=== PATIENT | female | born 1950 | race Caucasian/White ===

== ENCOUNTER 2024-01-12 19:35 | Inpatient (IN) | payer MEDICARE, OTHER ==
--- NOTE | 2024-01-12 20:43 | ED ---
General Adult HPI - General Source: patient, EMS, RN notes reviewed Mode of arrival: EMS <Rashida Greene - Last Filed: 01/13/24 00:02> <Allison Angel - Last Filed: 01/21/24 11:42> - General Chief complaint: Fever Stated complaint: Weakness Time Seen by Provider: 01/12/24 19:40 - History of Present Illness Initial comments: 73-year-old female with past medical history of ovarian cancer and A-fib presents to the emergency department for evaluation of full body pain and weakness. She states that she received chemotherapy at the end of last week. She notes that on Sunday she developed severe full body pains. She called her oncologist, Dr. Vincent and was prescribed gabapentin and oxycodon she states that she was taking these and it helped. She reports that the gabapentin made her feel confused so she has not been taking it. She reports chills today. She is on Eliquis for her A-fib. Denies chest pain, shortness of breath, cough, congestion, nausea, vomiting, diarrhea. Family states they did an at home UTI test which was positive. (Rashida Greene) - Related Data Home Medications Medication Instructions Recorded Confirmed Biotin 5 mg PO DAILY 01/12/24 01/12/24 Cholecalciferol (Vitamin D3) 50 mcg PO DAILY 01/12/24 01/12/24 [Vitamin D3 (50 Mcg = 2000 Iu)] Metoprolol Tartrate [Lopressor] 50 mg PO BID 01/12/24 01/13/24 Pantoprazole Sodium [Protonix] 40 mg PO DAILY 01/12/24 01/12/24 Prochlorperazine [Compazine] 10 mg PO Q6H PRN 01/12/24 01/12/24 Pyridoxine HCl (Vitamin B6) 100 mg PO DAILY 01/12/24 01/12/24 [Vitamin B-6] amLODIPine [Norvasc] 10 mg PO DAILY PRN 01/12/24 01/12/24 ondansetron HCL [Zofran] 8 mg PO Q8HR PRN 01/12/24 01/12/24 oxyCODONE HCL [OxyIR] 5 mg PO Q6H PRN 01/12/24 01/12/24 Previous Rx's Medication Instructions Recorded Acetaminophen Tab [Tylenol] 650 mg PO Q6HR PRN tab 01/16/24 Apixaban [Eliquis] 5 mg PO BID #60 tab 01/16/24 Magnesium Oxide [Mag-Ox] 400 mg PO TID 7 Days #21 tablet 01/16/24 cefUROXime axetiL [Ceftin] 500 mg PO BID 7 Days #14 tab 01/16/24 Allergies Allergy/AdvReac Type Severity Reaction Status Date / Time No Known Allergies Allergy Verified 01/12/24 20:09 Review of Systems ROS Other: All systems not noted in ROS Statement are negative. <Rashida Greene - Last Filed: 01/13/24 00:02> ROS Other: All systems not noted in ROS Statement are negative. <Allison Angel - Last Filed: 01/21/24 11:42> ROS Statement: Those systems with pertinent positive or pertinent negative responses have been documented in the HPI. General Exam Limitations: no limitations General appearance: alert, in no apparent distress Head exam: Present: atraumatic, normocephalic, normal inspection Eye exam: Present: normal appearance, PERRL, EOMI. Absent: scleral icterus, conjunctival injection, periorbital swelling ENT exam: Present: normal exam, mucous membranes moist Neck exam: Present: normal inspection. Absent: tenderness, meningismus, lymphadenopathy Respiratory exam: Present: normal lung sounds bilaterally. Absent: respiratory distress, wheezes, rales, rhonchi, stridor Cardiovascular Exam: Present: normal rhythm, tachycardia GI/Abdominal exam: Present: soft, normal bowel sounds. Absent: distended, tenderness, guarding, rebound, rigid Extremities exam: Present: normal inspection, full ROM, normal capillary refill. Absent: tenderness, pedal edema, joint swelling, calf tenderness Back exam: Present: normal inspection Neurological exam: Present: alert, oriented X3 Psychiatric exam: Present: normal affect, normal mood Skin exam: Present: warm, dry, intact, normal color. Absent: rash <Rashida Greene - Last Filed: 01/13/24 00:02> Course Vital Signs 01/12/24 01/12/24 01/12/24 19:40 22:37 23:00 Temperature 100.1 F H Pulse Rate 144 H 128 H 83 Respiratory 18 18 16 Rate Blood Pressure 107/79 93/66 95/64 O2 Sat by Pulse 96 95 96 Oximetry 03/30/24 03/31/24 03/31/24 23:32 00:09 00:46 Temperature Pulse Rate 84 77 75 Respiratory 16 16 16 Rate Blood Pressure 93/60 94/84 93/55 O2 Sat by Pulse 97 96 94 L Oximetry Medical Decision Making - Lab Data Result diagrams: 01/12/24 20:52 01/12/24 20:52 <Rashida Greene - Last Filed: 01/13/24 00:02> - Lab Data Result diagrams: 01/15/24 10:03 01/16/24 08:49 <JeanneAllison Irene - Last Filed: 01/21/24 11:42> - Medical Decision Making Was pt. sent in by a medical professional or institution (JULISSA White, MACHINE WASHER, urgent care, hospital, or long term...) When possible be specific @ -[No] Did you speak to anyone other than the patient for history (EMS, parent, family, police, friend...)? What history was obtained from this source @ -[Patient's daughter and son-in-law in the room provided the history for this patient] Did you review nursing and triage notes (agree or disagree)? Why? @ -[I reviewed and agree with nursing and triage notes] Were old charts reviewed (outside hosp., previous admission, EMS record, old EKG, old radiological studies, urgent care reports/EKG's, long term records)? Report findings @ -[No old charts were reviewed] Differential Diagnosis (chest pain, altered mental status, abdominal pain women, abdominal pain men, vaginal bleeding, weakness, fever, dyspnea, syncope, headache, dizziness, GI bleed, back pain, seizure, CVA, palpatations, mental health, musculoskeletal)? @ -[Differential Weakness: Hypoglycemia, shock, sepsis, hyponatremia, anemia, infection, IA, ETOH, adverse medicine reaction, overdose, stroke, this is not meant to be an all-inclusive list. ] EKG interpreted by me (3pts min.). @ -EKG at 1946 shows sinus tachycardia rate 118, IA 128, QRS 79, QTQTc [id number] X-rays interpreted by me (1pt min.). @ -[Chest x-ray shows no acute process] CT interpreted by me (1pt min.). @ -[None done] U/S interpreted by me (1pt. min.). @ -[None done] What testing was considered but not performed or refused? (CT, X-rays, U/S, labs)? Why? @ -[None] What meds were considered but not given or refused? Why? @ -[None] Did you discuss the management of the patient with other professionals (professionals i.e. Dr., PA, MACHINE WASHER, lab, RT, psych nurse, pediatric social worker, sports cartoonist, teacher, v/stol landing signal officer, case hardener)? Give summary @ -[No] Was smoking cessation discussed for >3mins.? @ -[No] Was critical care preformed (if so, how long)? @ -[No] Were there social determinants of health that impacted care today? How? (Homelessness, low income, unemployed, alcoholism, drug addiction, transportation, low edu. Level, literacy, decrease access to med. care, [facility], rehab)? @ -[No] Was there de-escalation of care discussed even if they declined (Discuss DNR or withdrawal of care, Hospice)? DNR status @ -[No] What co-morbidities impacted this encounter? (DM, HTN, Smoking, COPD, CAD, Cancer, CVA, ARF, Chemo, Hep., AIDS, mental health diagnosis, sleep apnea, morbid obesity)? @ -[Ovarian cancer] Was patient admitted / discharged? Hospital course, mention meds given and route, prescriptions, significant lab abnormalities, going to OR and other pertinent info. @ -[admitted. Patient presented to the emergency department for evaluation of generalized weakness, full body pain. Patient has a history of ovarian cancer and a chemotherapy patient. Patient states her last chemo was around 9 days ago. She follows with Dr. Vincent at [facility] in [place]. On presentation, patient is found to be febrile and tachycardic, source of infection not identified. Laboratory studies obtained which show leukopenia with a WBC of 900, Anemia with hemoglobin 9.9 which is baseline for the patient; normal coagulation studies; hyponatremia with sodium 129, BUN 37, creatinine 1.55, magnesium 1.1 this will be replaced. AST and ALT mildly elevated with alk phos 510. Negative troponin; COVID, influenza, RSV negative. UA pending at time of admission chest x-ray shows no acute process. Patient did receive 2 g of cefepime and vancomycin per pharmacy after WBC resulted with concern of neutropenic fever. Order placed for cefepime every 8 hours. She also received 2 L of normal saline and was started on 130 cc/h maintenance. Tachycardia improved. Patient will be admitted for neutropenic fever with consult to oncology. Discussed this with patient, she is understanding and agreeable with this plan.] Undiagnosed new problem with uncertain prognosis? @ -[No] Drug Therapy requiring intensive monitoring for toxicity (Heparin, Nitro, Insulin, Cardizem)? @ -[No] Were any procedures done? @ -[No] Diagnosis/symptom? @ -[neutropenic fever, sepsis] Acute, or Chronic, or Acute on Chronic? @ -acute Uncomplicated (without systemic symptoms) or Complicated (systemic symptoms)? @ -complicated Side effects of treatment? @ -[No] Exacerbation, Progression, or Severe Exacerbation? @ -[No] Poses a threat to life or bodily function? How? (Chest pain, USA, IA, pneumonia, PE, COPD, DKA, ARF, appy, cholecystitis, CVA, Diverticulitis, Homicidal, Suicidal, threat to staff... and all critical care pts) @ -[sepsis, neutropenic fever] (Rashida Greene) - Lab Data Lab Results 01/12/24 01/12/24 01/12/24 Range/Units 20:52 20:52 20:52 WBC 0.9 L* (3.8-10.6) k/uL RBC 3.37 L (3.80-5.40) m/uL Hgb 9.9 L (11.4-16.0) gm/dL Hct 30.3 L (34.0-46.0) % MCV 89.7 (80.0-100.0) fL MCH 29.4 (25.0-35.0) pg MCHC 32.8 (31.0-37.0) g/dL RDW 16.0 H (11.5-15.5) % Plt Count 87 L (150-450) k/uL MPV 9.0 Differential Comment Manual Slide Review Performed PT 11.0 (10.0-12.5) sec INR 1.0 (<1.2) APTT 29.0 (22.0-30.0) sec Sodium 129 L (137-145) mmol/L Potassium 4.1 (3.5-5.1) mmol/L Chloride 102 (98-107) mmol/L Carbon Dioxide 19 L (22-30) mmol/L Anion Gap 8 mmol/L BUN 37 H (7-17) mg/dL Creatinine 1.55 H (0.52-1.04) mg/dL Est GFR (CKD-EPI)AfAm 38 (>60 ml/min/1.73 sqM) Est GFR (CKD-EPI)NonAf 33 (>60 ml/min/1.73 sqM) Glucose 106 H (74-99) mg/dL Plasma Lactic Acid Alvarado (0.7-2.0) mmol/L Calcium 8.9 (8.4-10.2) mg/dL Magnesium 1.1 L (1.6-2.3) mg/dL Total Bilirubin 1.5 H (0.2-1.3) mg/dL AST 84 H (14-36) U/L ALT 81 H (4-34) U/L Alkaline Phosphatase 510 H (38-126) U/L Troponin I (0.000-0.034) ng/mL Total Protein 6.3 (6.3-8.2) g/dL Albumin 3.2 L (3.5-5.0) g/dL Influenza Type A (PCR) (Not Detectd) Influenza Type B (PCR) (Not Detectd) RSV (PCR) (Not Detectd) SARS-CoV-2 (PCR) (Not Detectd) 01/12/24 01/12/24 01/12/24 Range/Units 20:52 20:52 21:00 WBC (3.8-10.6) k/uL RBC (3.80-5.40) m/uL Hgb (11.4-16.0) gm/dL Hct (34.0-46.0) % MCV (80.0-100.0) fL MCH (25.0-35.0) pg MCHC (31.0-37.0) g/dL RDW (11.5-15.5) % Plt Count (150-450) k/uL MPV Differential Comment Manual Slide Review PT (10.0-12.5) sec INR (<1.2) APTT (22.0-30.0) sec Sodium (137-145) mmol/L Potassium (3.5-5.1) mmol/L Chloride (98-107) mmol/L Carbon Dioxide (22-30) mmol/L Anion Gap mmol/L BUN (7-17) mg/dL Creatinine (0.52-1.04) mg/dL Est GFR (CKD-EPI)AfAm (>60 ml/min/1.73 sqM) Est GFR (CKD-EPI)NonAf (>60 ml/min/1.73 sqM) Glucose (74-99) mg/dL Plasma Lactic Acid Alvarado 1.2 (0.7-2.0) mmol/L Calcium (8.4-10.2) mg/dL Magnesium (1.6-2.3) mg/dL Total Bilirubin (0.2-1.3) mg/dL AST (14-36) U/L ALT (4-34) U/L Alkaline Phosphatase (38-126) U/L Troponin I <0.012 (0.000-0.034) ng/mL Total Protein (6.3-8.2) g/dL Albumin (3.5-5.0) g/dL Influenza Type A (PCR) Not Detected (Not Detectd) Influenza Type B (PCR) Not Detected (Not Detectd) RSV (PCR) Not Detected (Not Detectd) SARS-CoV-2 (PCR) Not Detected (Not Detectd) Disposition Is patient prescribed a controlled substance at d/c from ED?: No <Rashida Greene - Last Filed: 01/13/24 00:02> <Allison Angel - Last Filed: 01/21/24 11:42> Clinical Impression: Neutropenic fever, Sepsis Disposition: ADMITTED IP TO THIS HOSP Condition: Fair
[2024-01-12] MEDS: SODIUM CHLORIDE 0.9% 1,000 ML IV STA ×2 (20:52→23:03)
[2024-01-12] MEDS: ACETAMINOPHEN TAB 325 MG TAB PO STA (20:57)
[2024-01-12 21:03] LABS: HCT 30.3 % (34.0-46.0); HGB 9.9 gm/dL (11.4-16.0); MCH 29.4 pg (25.0-35.0); MCHC 32.8 g/dL (31.0-37.0); MCV 89.7 fL (80.0-100.0); RBC 3.37 m/uL (3.80-5.40)
[2024-01-12 21:14] LABS: ALT 81 U/L (4-34); AST 84 U/L (14-36); African American GFR (CKD) 38 (>60 ml/min/1.73 sqM); Albumin 3.2 g/dL (3.5-5.0); Alkaline Phosphatase 510 U/L (38-126); Anion Gap 8 mmol/L; Blood Urea Nitrogen 37 mg/dL (7-17); Calcium 8.9 mg/dL (8.4-10.2); Carbon Dioxide 19 mmol/L (22-30); Chloride 102 mmol/L (98-107); Glucose 106 mg/dL (74-99); Magnesium 1.1 mg/dL (1.6-2.3); Non-African American GFR(CKD) 33 (>60 ml/min/1.73 sqM); Potassium 4.1 mmol/L (3.5-5.1); Sodium 129 mmol/L (137-145); Total Bilirubin 1.5 mg/dL (0.2-1.3); Total Protein 6.3 g/dL (6.3-8.2)
[2024-01-12 21:31] LABS: WBC 0.9 k/uL (3.8-10.6)
[2024-01-12] MEDS ORDERED: VANCOMYCIN IV PER PHARMACY 1 EACH MISC MISCELLANE PRN (21:38)
[2024-01-12] MEDS ORDERED: Magnesium Replacement Protocol 1 EACH MISC MISCELLANE PRN (21:46)
[2024-01-12] MEDS: CEFEPIME 2 GM in SODIUM CHLORIDE 0.9% 100 ML IVPB STA (22:20)
--- NOTE | 2024-01-12 22:30 | XR ---
EXAMINATION TYPE: XR chest 2V DATE OF EXAM: 01/12/2024 COMPARISON: None INDICATION: Weakness history of ovarian cancer TECHNIQUE: Frontal and lateral views of the chest are obtained. FINDINGS: The heart size is normal. The pulmonary vasculature is normal. The lungs are clear. IMPRESSION: 1. No acute pulmonary process.
[2024-01-12] MEDS: SODIUM CHLORIDE 0.9% 1,000 ML IV ONE (22:33)
[2024-01-12] MEDS: MAGNESIUM SULFATE-D5W PMX 1 GM in DEXTROSE/WATER 1 100ML.BAG IVPB SCH (22:34)
[2024-01-12] MEDS: VANCOMYCIN 1,250 MG in SODIUM CHLORIDE 0.9% 250 ML IVPB ONE (23:00)
[2024-01-12] MEDS: APIXABAN 5 MG TAB PO STA (23:05)
[2024-01-12 23:24] LABS: Platelet Count 87 k/uL (150-450)
[2024-01-13] MEDS ORDERED: ONDANSETRON 4 MG/2 ML VIAL IVP PRN
[2024-01-13] MEDS ORDERED: HYDROmorphone 0.5 MG/0.5 ML SYRINGE IVP PRN
[2024-01-13] MEDS ORDERED: NALOXONE 0.4 MG/ML 1 ML VIAL IV PRN
[2024-01-13 01:55] LABS: Appearance,Urine Clear (Clear); Bilirubin,Urine Negative (Negative); Blood,Urine Negative (Negative); Color,Urine Colorless; Glucose,Urine (UA) Negative (Negative); Ketones,Urine Negative (Negative); Leukocyte Esterase,Urine Negative (Negative); Nitrite,Urine Negative (Negative); Protein,Urine Negative (Negative); Specific Gravity,Urine 1.004 (1.001-1.035); Urobilinogen,Urine <2.0 mg/dL (<2.0)
[2024-01-13] MEDS: CEFEPIME 2 GM in SODIUM CHLORIDE 0.9% 100 ML IVPB SCH ×2 (06:13→18:31)
[2024-01-13] MEDS ORDERED: PROCHLORPERAZINE 10 MG TAB PO PRN (06:44)
[2024-01-13] MEDS ORDERED: ONDANSETRON 4 MG TAB PO PRN (06:44)
[2024-01-13] MEDS ORDERED: amLODIPine 10 MG TAB PO PRN (06:44)
[2024-01-13] MEDS ORDERED: NON FORMULARY DRUG (Biotin [Biotin] 5 MG Capsule) PO SCH (09:00)
[2024-01-13] MEDS: METOPROLOL TARTRATE 25 MG TAB PO SCH (09:49)
[2024-01-13] MEDS: CHOLECALCIFEROL 25 MCG (1000 IU) TABLET PO SCH (09:49)
[2024-01-13] MEDS: APIXABAN 5 MG TAB PO SCH (09:49)
[2024-01-13] MEDS: PANTOPRAZOLE 40 MG TABLET PO SCH (09:49)
--- NOTE | 2024-01-13 10:21 | P.CONS ---
History of Present Illness - Reason for Consult Consult date: 01/13/24 neutropenic fever Requesting physician: Nicole Bailey - Chief Complaint Body pain and weakness and chills - History of Present Illness Ms. Pena is a very pleasant 73 yo female with multiple comorbidities including ovarian cancer on chemo with Dr. Vincent who is here for diffuse body pain (stabbing pain, mostly in hands/arms and feet/legs), chills, and weakness. She received her last chemo, C1 of carbo/taxol, she states was a week ago. Per pt she did not recieve G-CSF. Sunday she developed body pain and was started on oxycodone and neurontin, which seemed to help however did started having confusion 1-2 days [employer]GER, about 3 days after starting neurontin which she attributed to neurontin and stopped this. Subsequently developed chills/rigors which prompted her ED visit. Work up iwth WBC 0.9, Hgb 9.9, plt 87, Na 129, Cr 1.5, temp 100.1, BP 90's/50's. CXR was negative, UA negative, and COVID/flu/RSV negative. She was started on broad spectrum antibiotics and admitted for further management. We were consulted for febrile neutropenia. 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 States she did not recieve neulasta this time, however she has received this in the past with other regimens. No diarrhea, SOB, sore throat, or other complaints. Slight headache the night prior to admission. Past Medical History Past Medical History: Atrial Fibrillation, Cancer Additional Past Medical History / Comment(s): Billiary stents, Ovarian cancer current chemo History of Any Multi-Drug Resistant Organisms: None Reported Past Anesthesia/Blood Transfusion Reactions: No Reported Reaction Smoking Status: Never smoker Past Alcohol Use History: None Reported Past Drug Use History: None Reported Medications and Allergies Home Medications Medication Instructions Recorded Confirmed Type Apixaban [Eliquis] 2.5 mg PO BID 01/12/24 01/12/24 History Biotin 5 mg PO DAILY 01/12/24 01/12/24 History Cholecalciferol (Vitamin D3) 50 mcg PO DAILY 01/12/24 01/12/24 History [Vitamin D3 (50 Mcg = 2000 Iu)] Metoprolol Tartrate [Lopressor] 50 mg PO BID 01/12/24 01/13/24 History Pantoprazole Sodium [Protonix] 40 mg PO DAILY 01/12/24 01/12/24 History Prochlorperazine [Compazine] 10 mg PO Q6H PRN 01/12/24 01/12/24 History Pyridoxine HCl (Vitamin B6) 100 mg PO DAILY 01/12/24 01/12/24 History [Vitamin B-6] amLODIPine [Norvasc] 10 mg PO DAILY PRN 01/12/24 01/12/24 History ondansetron HCL [Zofran] 8 mg PO Q8HR PRN 01/12/24 01/12/24 History oxyCODONE HCL [OxyIR] 5 mg PO Q6H PRN 01/12/24 01/12/24 History Allergies Allergy/AdvReac Type Severity Reaction Status Date / Time No Known Allergies Allergy Verified 01/12/24 20:09 Physical Exam Vitals: Vital Signs Temp Pulse Pulse Resp BP BP Pulse Ox 01/13/24 02:00 108 H 18 01/13/24 01:40 97.4 F L 108 H 18 97/63 98 01/13/24 00:46 75 16 93/55 94 L 01/13/24 00:09 77 16 94/84 96 01/12/24 23:32 84 16 93/60 97 01/12/24 23:00 83 16 95/64 96 01/12/24 22:37 128 H 18 93/66 95 01/12/24 19:40 100.1 F H 144 H 18 107/79 96 Intake and Output 01/12/24 01/12/24 01/13/24 14:59 22:59 06:59 Output Total 900 Balance -900 Output: Urine 900 Other: Voiding Method Bedside Commode Weight 64.41 kg 64.41 kg Pt appears to be in no acute distress. Alert and oriented x 3. Abdomen soft and nontender. No respiratory distress. Heart with regular rate. Conjunctival pallor, no scleral icterus. Results CBC & Chem 7: 01/12/24 20:52 01/12/24 20:52 Labs: Abnormal Lab Results - Last 24 Hours (Table) 01/12/24 01/12/24 Range/Units 20:52 20:52 WBC 0.9 L* (3.8-10.6) k/uL RBC 3.37 L (3.80-5.40) m/uL Hgb 9.9 L (11.4-16.0) gm/dL Hct 30.3 L (34.0-46.0) % RDW 16.0 H (11.5-15.5) % Plt Count 87 L (150-450) k/uL Sodium 129 L (137-145) mmol/L Carbon Dioxide 19 L (22-30) mmol/L BUN 37 H (7-17) mg/dL Creatinine 1.55 H (0.52-1.04) mg/dL Glucose 106 H (74-99) mg/dL Magnesium 1.1 L (1.6-2.3) mg/dL Total Bilirubin 1.5 H (0.2-1.3) mg/dL AST 84 H (14-36) U/L ALT 81 H (4-34) U/L Alkaline Phosphatase 510 H (38-126) U/L Albumin 3.2 L (3.5-5.0) g/dL Chest x-ray: report reviewed Assessment and Plan Assessment: 1. Neutropenic fevere 2. Severe sepsis 3. Ovarian cancer 4. Atrial fibrillation 5. Hyponatremia 6. FAWN 7. Pancytopenia due to chemotherapy Plan: Ms. Pena is a very pleasant 73 yo female with history of ovarian cancer, on chemotherapy, last given [address] Vincent who is here for weakness, chills and body pain. WOrk up with febrile neutropenia, WBC 0.9, and signs of dehydration, Cr 1.5, Na 129. CXR, UA, COVID/flu/RSV negative. - Pancytopenia due to chemotherapy, monitor CBC and transfuse for Hgb <7 and plt <15 - Agree with vanco/cefepime for febrile neutropenia, await blood cultures - States she did not receive neulasta. Will start G-CSF daily until her ANC improves - Hydration - Hold eliqius if her plt <50, currently plt 87 - Defer to primary team regarding metoprolol; states she takes 50mg twice a day at home, and concerned about holding this, however i explained that this sometimes needs to be held if her BP is too low, even at risk of reverting into a. fib. - Hold chemotherapy until pt improves - Obtain records from Dr. Vincent's office Discussed with pt and she is agreeable. All questions answered.
[2024-01-13] MEDS: PYRIDOXINE 50 MG TAB PO SCH (13:02)
[2024-01-13] MEDS: METOPROLOL TARTRATE 25 MG TAB PO STA (13:03)
--- NOTE | 2024-01-13 13:18 | P.HPIM ---
History of Present Illness H&P Date: 01/13/24 History of present illness; patient is 73-year-old lady with past medical history significant for ovarian cancer on chemotherapy, atrial fibrillation on Eliquis brought to the ER for generalized weakness and bodyaches. Patient stated that she was all right couple of days back when she started noticing that she was getting body aches. There was no complaint of fever but patient was complaining of chills. There was no complaint of cough or shortness of breath. There is no complaint of orthopnea or PND. Patient did receive chemotherapy last week. Throughout the week patient symptoms persisted and she decided to come to the ER. Initial lab work done in the ER showed WBC 0.9, hemoglobin 9.9, platelet count 87, sodium 129, potassium 4.1, BUN 37, creatinine 1.55 magnesium 1.1, total bilirubin 1.5, AST 84, ALT 81 UA negative for infection Influenza A not detected Influenza B not detected RSV not detected COVID-19 not detected EKG done in the ER showed heart rate of 118, PA interval 128, QRS 79, no ST segment elevation or depression seen, no T-wave inversions seen. Chest x-ray done in the ER showed no acute pulmonary process Patient admitted to internal medicine service REVIEW OF SYSTEMS: CONSTITUTIONAL: As mentioned above HEENT: No recent visual problems or hearing problems. Denied any sore throat. CARDIOVASCULAR: No chest pain, orthopnea, PND, no palpitations, no syncope. PULMONARY: As mentioned above GASTROINTESTINAL: No diarrhea, no nausea, no vomiting, no abdominal pain. NEUROLOGICAL: No headaches, no weakness, no numbness. HEMATOLOGICAL: Denies any bleeding or petechiae. GENITOURINARY: Denies any burning micturition, frequency, or urgency. MUSCULOSKELETAL/RHEUMATOLOGICAL: Denies any joint pain, swelling, or any muscle pain. ENDOCRINE: Denies any polyuria or polydipsia. The rest of the 14-point review of systems is negative. PHYSICAL EXAMINATION: GENERAL: The patient is alert and oriented x3, not in any acute distress. Well developed, well nourished. HEENT: Pupils are round and equally reacting to light. EOMI. positive for conjunctival pallor. Normocephalic, atraumatic. No pharyngeal erythema. No thyromegaly. CARDIOVASCULAR: S1 and S2 present. No murmurs, rubs, or gallops. PULMONARY: Chest is clear to auscultation, no wheezing or crackles. ABDOMEN: Soft, nontender, nondistended, normoactive bowel sounds. No palpable organomegaly. MUSCULOSKELETAL: No joint swelling or deformity. EXTREMITIES: No cyanosis, clubbing, or pedal edema. NEUROLOGICAL: Gross neurological examination did not reveal any focal deficits. SKIN: No rashes. Assessment and plan Neutropenic fevers Hyponatremia Pancytopenia Acute kidney injury Hypomagnesemia Elevated LFTs History of ovarian cancer Chronic atrial fibrillation Monitor vital signs Monitor CBC Monitor CMP Continue telemetry monitoring Follow-up on blood cultures Continue IV fluids Continue broad-spectrum antibiotics in the form of IV cefepime vancomycin Resume home meds Continue antiemetics Hematology consulted ID consulted Labs and medication were reviewed.. Continue same treatment. Continue with symptomatic treatment. Resume home medication. Monitor labs and vitals. DVT and GI prophylaxis. Further recommendations as per clinical course of the patient Dictation was produced using [employer], [employer] dictation software. please excuse any grammatical, word or spelling errors. Past Medical History Past Medical History: Atrial Fibrillation, Cancer Additional Past Medical History / Comment(s): Billiary stents, Ovarian cancer current chemo History of Any Multi-Drug Resistant Organisms: None Reported Past Anesthesia/Blood Transfusion Reactions: No Reported Reaction Smoking Status: Never smoker Past Alcohol Use History: None Reported Past Drug Use History: None Reported Medications and Allergies Home Medications Medication Instructions Recorded Confirmed Type Apixaban [Eliquis] 2.5 mg PO BID 01/12/24 01/12/24 History Biotin 5 mg PO DAILY 01/12/24 01/12/24 History Cholecalciferol (Vitamin D3) 50 mcg PO DAILY 01/12/24 01/12/24 History [Vitamin D3 (50 Mcg = 2000 Iu)] Metoprolol Tartrate [Lopressor] 50 mg PO BID 01/12/24 01/13/24 History Pantoprazole Sodium [Protonix] 40 mg PO DAILY 01/12/24 01/12/24 History Prochlorperazine [Compazine] 10 mg PO Q6H PRN 01/12/24 01/12/24 History Pyridoxine HCl (Vitamin B6) 100 mg PO DAILY 01/12/24 01/12/24 History [Vitamin B-6] amLODIPine [Norvasc] 10 mg PO DAILY PRN 01/12/24 01/12/24 History ondansetron HCL [Zofran] 8 mg PO Q8HR PRN 01/12/24 01/12/24 History oxyCODONE HCL [OxyIR] 5 mg PO Q6H PRN 01/12/24 01/12/24 History Allergies Allergy/AdvReac Type Severity Reaction Status Date / Time No Known Allergies Allergy Verified 01/12/24 20:09 Physical Exam Vitals: Vital Signs Temp Pulse Pulse Resp BP BP Pulse Ox 01/13/24 09:38 97.9 F 89 18 119/70 98 01/13/24 04:00 114 H 18 100/69 99 01/13/24 02:00 108 H 18 01/13/24 01:40 97.4 F L 108 H 18 97/63 98 01/13/24 00:46 75 16 93/55 94 L 01/13/24 00:09 77 16 94/84 96 01/12/24 23:32 84 16 93/60 97 01/12/24 23:00 83 16 95/64 96 01/12/24 22:37 128 H 18 93/66 95 01/12/24 19:40 100.1 F H 144 H 18 107/79 96 Intake and Output 01/12/24 01/13/24 01/13/24 22:59 06:59 14:59 Intake Total 0 Output Total 1800 Balance -1800 0 Intake: Oral 0 Output: Urine 1800 Other: Voiding Method Bedside Commode # Voids 1 # Bowel Movements 1 1 Weight 64.41 kg 64.41 kg Results CBC & Chem 7: 01/12/24 20:52 01/12/24 20:52 Labs: Abnormal Lab Results - Last 24 Hours (Table) 01/12/24 01/12/24 Range/Units 20:52 20:52 WBC 0.9 L* (3.8-10.6) k/uL RBC 3.37 L (3.80-5.40) m/uL Hgb 9.9 L (11.4-16.0) gm/dL Hct 30.3 L (34.0-46.0) % RDW 16.0 H (11.5-15.5) % Plt Count 87 L (150-450) k/uL Sodium 129 L (137-145) mmol/L Carbon Dioxide 19 L (22-30) mmol/L BUN 37 H (7-17) mg/dL Creatinine 1.55 H (0.52-1.04) mg/dL Glucose 106 H (74-99) mg/dL Magnesium 1.1 L (1.6-2.3) mg/dL Total Bilirubin 1.5 H (0.2-1.3) mg/dL AST 84 H (14-36) U/L ALT 81 H (4-34) U/L Alkaline Phosphatase 510 H (38-126) U/L Albumin 3.2 L (3.5-5.0) g/dL Thrombosis Risk Factor Assmnt - Choose All That Apply Any of the Below Risk Factors Present?: No Other Risk Factors: Yes Each Risk Factor Represents 2 Points: Malignancy Each Risk Factor Represents 3 Points: Age 75 years or older Other congenital or acquired thrombophilia - If yes, enter type in comment: No Thrombosis Risk Factor Assessment Total Risk Factor Score: 5 Thrombosis Risk Factor Assessment Level: High Risk
[2024-01-13] MEDS: VANCOMYCIN 1,250 MG in SODIUM CHLORIDE 0.9% 250 ML IVPB ONE (14:41)
[2024-01-13] MEDS: FILGRASTIM-SNDZ 300 MCG/0.5 ML SYRINGE SQ SCH (18:31)
[2024-01-13] MEDS: METOPROLOL TARTRATE 50 MG TAB PO SCH (20:48)
[2024-01-13] MEDS: ACETAMINOPHEN TAB 325 MG TAB PO PRN (22:31)
--- NOTE | 2024-01-13 23:01 | P.CONS ---
History of Present Illness - Reason for Consult Consult date: 01/13/24 Fever Requesting physician: Mina Beaver - Chief Complaint Fever x 1 day - History of Present Illness Patient is a 73-year-old female past medical history significant for atrial fibrillation history of ovarian cancer on chemotherapy presenting to the hospital for evaluation of generalized weakness and bodyaches and this patient symptom has been going on since Sunday that is about 4 days before presentation to the hospital and her last chemo has been about a week ago patient apparently has been treated with gabapentin and oxycodone for her symptoms however the patient seem to have weakness and confusion associated with it started having rigors and chills for the patient present to the hospital patient on arrival to the ER did have a temperature of 100.1 F patient denies having any headache or URI symptoms no chest pain shortness of breath occasional cough no nausea no vomiting no abdominal pain no diarrhea no urinary symptoms patient did have a white count of 0.9 creatinine is 1.55 liver isms are mildly elevated urine has been negative influenza RSV COVID testing has been negative chest x-ray no acute cardiopulmonary process patient was started on cefepime and vancomycin infectious disease was consulted for further management of antibiotic therapy Review of Systems Positive point and negatives has been mentioned in the HPI, complete review of systems was performed and all other systems are negative Past Medical History Past Medical History: Atrial Fibrillation, Cancer Additional Past Medical History / Comment(s): Billiary stents, Ovarian cancer c urrent chemo History of Any Multi-Drug Resistant Organisms: None Reported Past Anesthesia/Blood Transfusion Reactions: No Reported Reaction Smoking Status: Never smoker Past Alcohol Use History: None Reported Past Drug Use History: None Reported Medications and Allergies Home Medications Medication Instructions Recorded Confirmed Type Biotin 5 mg PO DAILY 01/12/24 01/12/24 History Cholecalciferol (Vitamin D3) 50 mcg PO DAILY 01/12/24 01/12/24 History [Vitamin D3 (50 Mcg = 2000 Iu)] Metoprolol Tartrate [Lopressor] 50 mg PO BID 01/12/24 01/13/24 History Pantoprazole Sodium [Protonix] 40 mg PO DAILY 01/12/24 01/12/24 History Prochlorperazine [Compazine] 10 mg PO Q6H PRN 01/12/24 01/12/24 History Pyridoxine HCl (Vitamin B6) 100 mg PO DAILY 01/12/24 01/12/24 History [Vitamin B-6] amLODIPine [Norvasc] 10 mg PO DAILY PRN 01/12/24 01/12/24 History ondansetron HCL [Zofran] 8 mg PO Q8HR PRN 01/12/24 01/12/24 History oxyCODONE HCL [OxyIR] 5 mg PO Q6H PRN 01/12/24 01/12/24 History Acetaminophen Tab [Tylenol] 650 mg PO Q6HR PRN tab 01/16/24 Rx Apixaban [Eliquis] 5 mg PO BID #60 tab 01/16/24 Rx Magnesium Oxide [Mag-Ox] 400 mg PO TID 7 Days #21 tablet 01/16/24 Rx cefUROXime axetiL [Ceftin] 500 mg PO BID 7 Days #14 tab 01/16/24 Rx Allergies Allergy/AdvReac Type Severity Reaction Status Date / Time No Known Allergies Allergy Verified 01/12/24 20:09 Physical Exam Vitals: Vital Signs Temp Pulse Pulse Resp BP BP Pulse Ox 01/13/24 12:06 99.0 F 85 18 124/64 98 01/13/24 09:40 89 18 01/13/24 09:38 97.9 F 89 18 119/70 98 01/13/24 04:00 114 H 18 100/69 99 01/13/24 02:00 108 H 18 01/13/24 01:40 97.4 F L 108 H 18 97/63 98 01/13/24 00:46 75 16 93/55 94 L 01/13/24 00:09 77 16 94/84 96 01/12/24 23:32 84 16 93/60 97 01/12/24 23:00 83 16 95/64 96 01/12/24 22:37 128 H 18 93/66 95 01/12/24 19:40 100.1 F H 144 H 18 107/79 96 Intake and Output 01/12/24 01/13/24 01/13/24 22:59 06:59 14:59 Intake Total 0 Output Total 1800 Balance -1800 0 Intake: Oral 0 Output: Urine 1800 Other: Voiding Method Bedside Commode Bedside Commode # Voids 1 # Bowel Movements 1 1 Weight 64.41 kg 64.41 kg GENERAL DESCRIPTION: Elderly female lying in bed, no distress. No tachypnea or accessory muscle of respiration use. HEENT: Shows Pallor , no scleral icterus. Oral mucous membrane is dry. No pharyngeal erythema or thrush NECK: Trachea central, no thyromegaly. LUNGS: Unlabored breathing. Clear to auscultation anteriorly. No wheeze or crackle. HEART: S1, S2, regular rate and rhythm. No loud murmur ABDOMEN: Soft, no tenderness , guarding or rigidity, no organomegaly EXTREMITIES: No edema of feet. SKIN: No rash, no masses palpable. NEUROLOGICAL: The patient is awake, alert, oriented x3, mood and affect normal. Results CBC & Chem 7: 01/15/24 10:03 01/16/24 08:49 Labs: Abnormal Lab Results - Last 24 Hours (Table) 01/12/24 01/12/24 Range/Units 20:52 20:52 WBC 0.9 L* (3.8-10.6) k/uL RBC 3.37 L (3.80-5.40) m/uL Hgb 9.9 L (11.4-16.0) gm/dL Hct 30.3 L (34.0-46.0) % RDW 16.0 H (11.5-15.5) % Plt Count 87 L (150-450) k/uL Sodium 129 L (137-145) mmol/L Carbon Dioxide 19 L (22-30) mmol/L BUN 37 H (7-17) mg/dL Creatinine 1.55 H (0.52-1.04) mg/dL Glucose 106 H (74-99) mg/dL Magnesium 1.1 L (1.6-2.3) mg/dL Total Bilirubin 1.5 H (0.2-1.3) mg/dL AST 84 H (14-36) U/L ALT 81 H (4-34) U/L Alkaline Phosphatase 510 H (38-126) U/L Albumin 3.2 L (3.5-5.0) g/dL Assessment and Plan (1) Neutropenic fever Status: Acute Code(s): D70.9 - NEUTROPENIA, UNSPECIFIED; R50.81 - FEVER PRESENTING WITH CONDITIONS CLASSIFIED ELSEWHERE SNOMED Code(s): 121148344 Plan: 1patient presented to hospital with fever and this patient also noticed to be neutropenic from her chemotherapy symptom has been mostly fever generalized bodyaches and did have elevated liver enzymes questionable abdominal source 2-we will check inflammatory markers and ultrasound of the abdominal 3-patient to continue vancomycin and cefepime while waiting for the culture to finalize We will follow on clinical condition and cultures to further adjust medication if needed Thank you for this consultation we will follow the patient along with you Dictation was produced using [employer] dictation software. please excuse any grammatical, word or spelling errors. Time with Patient: Greater than 30
[2024-01-14 08:52] LABS: HCT 24.8 % (34.0-46.0); Hypochromasia Marked; MCHC 31.4 g/dL (31.0-37.0); Mean Platelet Volume 10.5; RDW 15.8 % (11.5-15.5); WBC 2.7 k/uL (3.8-10.6)
[2024-01-14 09:05] LABS: HGB 7.8 gm/dL (11.4-16.0); MCV 95.3 fL (80.0-100.0); Platelet Count 69 k/uL (150-450)
[2024-01-14 09:05] LABS: ALT 43 U/L (4-34); AST 32 U/L (14-36); African American GFR (CKD) 63 (>60 ml/min/1.73 sqM); Albumin 2.4 g/dL (3.5-5.0); Alkaline Phosphatase 341 U/L (38-126); Anion Gap 8 mmol/L; Blood Urea Nitrogen 20 mg/dL (7-17); Calcium 8.5 mg/dL (8.4-10.2); Carbon Dioxide 15 mmol/L (22-30); Chloride 110 mmol/L (98-107); Glucose 89 mg/dL (74-99); Magnesium 1.5 mg/dL (1.6-2.3); Non-African American GFR(CKD) 55 (>60 ml/min/1.73 sqM); Potassium 3.4 mmol/L (3.5-5.1); Sodium 133 mmol/L (137-145); Total Protein 5.2 g/dL (6.3-8.2)
[2024-01-14 09:10] LABS: Vancomycin,Random 13.9 ug/mL
[2024-01-14 09:43] LABS: Band Neutrophils % 9 %; Eosinophils # (M) 0.03 k/uL (0-0.7); Lymphocytes # (M) 0.57 k/uL (1.0-4.8); Monocytes # (M) 0.35 k/uL (0-1.0); Neutrophils % (M) 56 %; Nucleated Red Blood Cells 0 /100 WBC (0-0); Total Cells Counted 100
[2024-01-14] MEDS ORDERED: Magnesium Replacement Protocol 1 EACH MISC MISCELLANE PRN (09:56)
[2024-01-14] MEDS ORDERED: Potassium Replacement Protocol 1 EACH MISC MISCELLANE PRN (09:56)
[2024-01-14] MEDS: VANCOMYCIN 1,250 MG in SODIUM CHLORIDE 0.9% 250 ML IVPB SCH (11:14)
[2024-01-14] MEDS: MAGNESIUM SULFATE-D5W PMX 1 GM in DEXTROSE/WATER 1 100ML.BAG IVPB SCH (11:17)
[2024-01-14] MEDS: POTASSIUM CHLORIDE ER 20 MEQ TAB.ER PO SCH (11:18)
--- NOTE | 2024-01-14 14:44 | P.PN ---
Subjective Progress Note Date: 01/14/24 No acute events. Patient resting comfortably in bed. Patient had fever of 101.0 last night. Afebrile today. Denies abdominal pain, nausea vomiting diarrhea. WBC improving, WBC 2.7 today, ANC 1700. G-CSF started yesterday. Continues on IV antibiotics, blood cultures pending Objective - Vital Signs Vital signs: Vital Signs Temp 98 F 01/14/24 04:00 Pulse 82 01/14/24 04:00 Resp 18 01/14/24 04:00 BP 118/74 01/14/24 04:00 Pulse Ox 94 L 01/14/24 08:04 FiO2 Intake & Output 01/13/24 01/14/24 01/14/24 18:59 06:59 18:59 Intake Total 240 Output Total 800 Balance 240 -800 Intake: Oral 240 Output: Urine 800 Other: Voiding Method Bedside Commode Bedside Commode # Voids 2 1 # Bowel Movements 2 - Constitutional General appearance: Present: no acute distress - EENT Eyes: Present: anicteric sclerae, EOMI ENT: Present: hearing grossly normal - Respiratory Respiratory: bilateral: CTA - Cardiovascular Rhythm: regular Heart sounds: normal: S1, S2 - Gastrointestinal General gastrointestinal: Present: soft. Absent: tenderness - Integumentary Integumentary: Absent: cyanotic, jaundiced - Neurologic Neurologic Comment(s): No focal deficits - Musculoskeletal Musculoskeletal: Present: strength equal bilaterally - Psychiatric Psychiatric: Present: A&O x's 3 - Labs CBC & Chem 7: 01/14/24 07:08 01/14/24 06:57 Labs: Abnormal Lab Results - Last 24 Hours (Table) 01/14/24 01/14/24 Range/Units 06:57 07:08 WBC 2.7 L (3.8-10.6) k/uL RBC 2.60 L (3.80-5.40) m/uL Hgb 7.8 L D (11.4-16.0) gm/dL Hct 24.8 L (34.0-46.0) % RDW 15.8 H (11.5-15.5) % Plt Count 69 L (150-450) k/uL Lymphocytes # (Manual) 0.57 L (1.0-4.8) k/uL Sodium 133 L (137-145) mmol/L Potassium 3.4 L (3.5-5.1) mmol/L Chloride 110 H (98-107) mmol/L Carbon Dioxide 15 L (22-30) mmol/L BUN 20 H (7-17) mg/dL Magnesium 1.5 L (1.6-2.3) mg/dL ALT 43 H (4-34) U/L Alkaline Phosphatase 341 H (38-126) U/L Total Protein 5.2 L (6.3-8.2) g/dL Albumin 2.4 L (3.5-5.0) g/dL Assessment and Plan (1) Ovarian cancer Current Visit: Yes Status: Acute Code(s): C56.9 - MALIGNANT NEOPLASM OF UNSPECIFIED OVARY SNOMED Code(s): 996053734 (2) Pancytopenia due to chemotherapy Current Visit: Yes Status: Acute Code(s): D61.810 - ANTINEOPLASTIC CHEMOTHERAPY INDUCED PANCYTOPENIA SNOMED Code(s): 8176285 (3) Neutropenic fever Current Visit: Yes Status: Acute Code(s): D70.9 - NEUTROPENIA, UNSPECIFIED; R50.81 - FEVER PRESENTING WITH CONDITIONS CLASSIFIED ELSEWHERE SNOMED Code(s): 866947280 (4) Sepsis Current Visit: Yes Status: Acute Code(s): A41.9 - SEPSIS, UNSPECIFIED ORGANISM SNOMED Code(s): 90863714 Plan: Ms. Pena is a very pleasant 73 yo female with history of ovarian cancer, on chemotherapy, last given [address] Vincent who is here for weakness, chills and body pain. Work up with febrile neutropenia, WBC 0.9, and signs of dehydration, Cr 1.5, Na 129. CXR, UA, COVID/flu/RSV negative. - Pancytopenia due to chemotherapy, monitor CBC and transfuse for Hgb <7 and plt <50,000, if remains on anticoagulation - Agree with vanco/cefepime for febrile neutropenia, await blood cultures - States she did not receive neulasta with treatment. Will start G-CSF daily u ntil her ANC improves - Hold eliqius if her plt <50,0000, if able to from cardiology standpoint. Plts 69,000 today - Patient had last chemo on 01/03, would expect to start seeing improvement in counts over the next couple days - Hold chemotherapy until pt improves. Will f/u with Dr. Vincent upon discharge, defer when appropriate to restart treatment to her primary oncologist Dr attests: I have performed H&P and developed impression and plan of care for patient, discussed with dictator. I agree with dictated note, documented as a scribe
[2024-01-14 15:43] VITALS: BMI 24.3
[2024-01-14 15:46] LABS: Glucose,Whole Blood 103 mg/dL (70-110)
--- NOTE | 2024-01-14 17:11 | US ---
EXAMINATION TYPE: US abdomen complete DATE OF EXAM: 01/14/2024 COMPARISON: NONE CLINICAL INDICATION: Female, 73 years old with history of Fever elevated liver enzymes; Elevated LFT' s, pt has known CBD stent in place TECHNIQUE: Multiple sonographic images of the abdomen are obtained. FINDINGS: EXAM MEASUREMENTS: Liver Length: 14.6 cm Gallbladder Wall: 0.2 cm CBD: 1.2 cm Spleen: 9.0 cm Right Kidney: 10.8 x 4.6 x 5.3 cm Left Kidney: 9.6 x 4.5 x 4.3 cm Pancreas: wnl, tail obscured by overlying bowel gas Liver: Heterogeneous , no dilated ducts, masses or cystic structures. Gallbladder: Distended Evidence for sonographic De La Torre's sign: No CBD: Dilated with known stent in place Spleen: wnl Right Kidney: wnl Left Kidney: wnl Upper IVC: wnl Abd Aorta: wnl The liver is homogenous. The intrahepatic portion of the IVC and proximal abdominal aorta are within normal limits. There is no evidence of cholelithiasis. Common bile duct is unremarkable. The visu alized portions of the pancreas are homogenous. The spleen is unremarkable. Kidneys are symmetric a nd free of hydronephrosis. No renal lesions are seen. IMPRESSION: 1. No evidence for acute process. 2. Biliary stent appreciated. Consider further evaluation with MRI MRCP with IV contrast or CT.
--- NOTE | 2024-01-14 19:05 | P.PN ---
Subjective Progress Note Date: 01/14/24 Principal diagnosis: Reason for follow-up is febrile neutropenia Patient is a 73-year-old female past medical history significant for atrial fibrillation history of ovarian cancer on chemotherapy presenting to the hospital for evaluation of generalized weakness and bodyaches, patient did have a fever no white count initial workup negative. On today's evaluation that is 01/14/2024, the patient did spike another fever of 101 F last night however the patient is afebrile this morning, the patient is on room air and breathing comfortably, the Pt denies having any chest pain or cough, the patient denies having any abdominal pain no vomiting or any diarrhea patient white count is up to 2.7, creatinine is 1.01 cultures currently pending Objective - Vital Signs Vital signs: Vital Signs Temp 98 F 01/14/24 04:00 Pulse 82 01/14/24 04:00 Resp 18 01/14/24 04:00 BP 118/74 01/14/24 04:00 Pulse Ox 94 L 01/14/24 08:04 FiO2 Intake & Output 01/13/24 01/14/24 01/14/24 18:59 06:59 18:59 Intake Total 240 Output Total 800 Balance 240 -800 Intake: Oral 240 Output: Urine 800 Other: Voiding Method Bedside Commode Bedside Commode # Voids 2 1 # Bowel Movements 2 - Exam GENERAL DESCRIPTION: An elderly female up in the chair in no distress RESPIRATORY SYSTEM: Unlabored breathing , decreased breath sounds at bases HEART: S1 S2 regular rate and rhythm , ABDOMEN: Soft , no tenderness EXTREMITIES: No edema feet - Labs CBC & Chem 7: 01/14/24 07:08 01/14/24 06:57 Labs: Abnormal Lab Results - Last 24 Hours (Table) 01/14/24 01/14/24 Range/Units 06:57 07:08 WBC 2.7 L (3.8-10.6) k/uL RBC 2.60 L (3.80-5.40) m/uL Hgb 7.8 L D (11.4-16.0) gm/dL Hct 24.8 L (34.0-46.0) % RDW 15.8 H (11.5-15.5) % Plt Count 69 L (150-450) k/uL Lymphocytes # (Manual) 0.57 L (1.0-4.8) k/uL Sodium 133 L (137-145) mmol/L Potassium 3.4 L (3.5-5.1) mmol/L Chloride 110 H (98-107) mmol/L Carbon Dioxide 15 L (22-30) mmol/L BUN 20 H (7-17) mg/dL Magnesium 1.5 L (1.6-2.3) mg/dL ALT 43 H (4-34) U/L Alkaline Phosphatase 341 H (38-126) U/L Total Protein 5.2 L (6.3-8.2) g/dL Albumin 2.4 L (3.5-5.0) g/dL Microbiology - Last 24 Hours (Table) 01/12/24 22:15 Blood Culture - Preliminary Blood 01/12/24 22:00 Blood Culture - Preliminary Blood Assessment and Plan (1) Neutropenic fever Current Visit: Yes Status: Acute Code(s): D70.9 - NEUTROPENIA, UNSPECIFIED; R50.81 - FEVER PRESENTING WITH CONDITIONS CLASSIFIED ELSEWHERE SNOMED Code(s): 811631681 Plan: 1patient presented to hospital with fever and this patient also noticed to be neutropenic from her chemotherapy symptom has been mostly fever generalized bodyaches and did have elevated liver enzymes questionable abdominal source 2- inflammatory markers pending and ultrasound of the abdomin did not show any acute process biliary stent appreciated 3-patient to continue vancomycin and cefepime while waiting for the culture to finalize and monitor clinical course closely Dictation was produced using [employer] dictation software. please excuse any grammatical, word or spelling errors. Time with Patient: Less than 30
--- NOTE | 2024-01-15 08:08 | PN ---
PROGRESS NOTE DATE OF SERVICE: 01/14/2024 This 73-year-old woman was admitted with neutropenic fever and hyponatremia and pancytopenia and is being closely monitored. No chest pain. No palpitations. White count is improved at 2.7. PHYSICAL EXAMINATION: VITAL SIGNS: Pulse is 82, blood pressure 118/70, respirations 18. CHEST: Clear to auscultation. CARDIOVASCULAR: S1, S2. ABDOMEN: Soft. NERVOUS SYSTEM: No focal deficits. LABS: Cultures are negative. Otherwise, other labs are noted. ASSESSMENT: 1. Neutropenic fever for evaluation. 2. Hyponatremia. 3. Pancytopenia. 4. Acute kidney injury. 5. Hypomagnesemia. 6. Elevated LFTs. 7. History of ovarian cancer. 8. Multiple complex medical issues. RECOMMENDATIONS AND DISCUSSION: Recommend to continue current management, continue symptomatic treatment, and continue empiric antibiotics. Potassium, magnesium checking replacement, the patient is on cefepime. Otherwise, repeat labs. Further recommendations to follow. See orders for details. Closely follow with Infectious Disease. MMODL / IJN: [id number] /
[2024-01-15 11:32] LABS: African American GFR (CKD) 61 (>60 ml/min/1.73 sqM); Anion Gap 6 mmol/L; Blood Urea Nitrogen 18 mg/dL (7-17); Calcium 9.1 mg/dL (8.4-10.2); Carbon Dioxide 18 mmol/L (22-30); Chloride 111 mmol/L (98-107); Glucose 101 mg/dL (74-99); Magnesium 1.7 mg/dL (1.6-2.3); Non-African American GFR(CKD) 53 (>60 ml/min/1.73 sqM); Potassium 4.1 mmol/L (3.5-5.1); Sodium 135 mmol/L (137-145)
[2024-01-15 11:40] LABS: Anisocytosis Slight; HCT 25.7 % (34.0-46.0); HGB 8.2 gm/dL (11.4-16.0); Hypochromasia Slight; MCH 29.6 pg (25.0-35.0); MCHC 31.8 g/dL (31.0-37.0); MCV 93.1 fL (80.0-100.0); Mean Platelet Volume 9.9; Platelet Count 91 k/uL (150-450); RBC 2.76 m/uL (3.80-5.40); WBC 6.2 k/uL (3.8-10.6)
[2024-01-15 12:55] LABS: Band Neutrophils % 4 %; Eosinophils # (M) 0.06 k/uL (0-0.7); Lymphocytes # (M) 0.74 k/uL (1.0-4.8); Metamyelocytes # (M) 0.19 k/uL (0); Metamyelocytes % 3 %; Monocytes # (M) 0.74 k/uL (0-1.0); Neutrophils % (M) 70 %; Nucleated Red Blood Cells 0 /100 WBC (0-0); Total Cells Counted 200
[2024-01-15] MEDS ORDERED: Magnesium Replacement Protocol 1 EACH MISC MISCELLANE PRN (13:22)
[2024-01-15] MEDS: MAGNESIUM SULFATE-D5W PMX 1 GM in DEXTROSE/WATER 1 100ML.BAG IVPB ONE (15:18)
--- NOTE | 2024-01-15 16:36 | P.PN ---
Subjective Progress Note Date: 01/15/24 Principal diagnosis: Reason for follow-up is febrile neutropenia Patient is a 73-year-old female past medical history significant for atrial fibrillation history of ovarian cancer on chemotherapy presenting to the hospital for evaluation of generalized weakness and bodyaches, patient did have a fever no white count initial workup negative. On today's evaluation that is 01/15/2024, Patient is afebrile patient is currently on room air and denies having any shortness of breath, the patient denies any chest pain or cough, the patient denies any nausea vomiting did not have any abdominal pain and no diarrhea, feeling better. Patient white count is normalized to 6.2, creatinine 1.04 culture has been negative so far Objective - Vital Signs Vital signs: Vital Signs Temp 98.5 F 01/15/24 15:16 Pulse 93 01/15/24 15:16 Resp 16 01/15/24 15:16 BP 111/72 01/15/24 15:16 Pulse Ox 98 01/15/24 15:16 FiO2 Intake & Output 01/14/24 01/15/24 01/15/24 18:59 06:59 18:59 Intake Total 240 Balance 240 Weight 64.41 kg Intake: Oral 240 Other: Voiding Method Bedside Commode Bedside Commode Bedside Commode # Voids 1 - Exam GENERAL DESCRIPTION: An elderly female up in the chair in no distress RESPIRATORY SYSTEM: Unlabored breathing , decreased breath sounds at bases HEART: S1 S2 regular rate and rhythm , ABDOMEN: Soft , no tenderness EXTREMITIES: No edema feet - Labs CBC & Chem 7: 01/15/24 10:03 01/15/24 10:03 Labs: Abnormal Lab Results - Last 24 Hours (Table) 01/15/24 01/15/24 Range/Units 10:03 10:03 RBC 2.76 L (3.80-5.40) m/uL Hgb 8.2 L (11.4-16.0) gm/dL Hct 25.7 L (34.0-46.0) % RDW 16.0 H (11.5-15.5) % Plt Count 91 L (150-450) k/uL Lymphocytes # (Manual) 0.74 L (1.0-4.8) k/uL Metamyelocytes # (Man) 0.19 H (0) k/uL Sodium 135 L (137-145) mmol/L Chloride 111 H (98-107) mmol/L Carbon Dioxide 18 L (22-30) mmol/L BUN 18 H (7-17) mg/dL Glucose 101 H (74-99) mg/dL Microbiology - Last 24 Hours (Table) 01/12/24 22:15 Blood Culture - Preliminary Blood 01/12/24 22:00 Blood Culture - Preliminary Blood Assessment and Plan (1) Neutropenic fever Current Visit: Yes Status: Acute Code(s): D70.9 - NEUTROPENIA, UNSPECIFIED; R50.81 - FEVER PRESENTING WITH CONDITIONS CLASSIFIED ELSEWHERE SNOMED Code(s): 617196424 Plan: 1patient presented to hospital with fever and this patient also noticed to be neutropenic from her chemotherapy symptom has been mostly fever generalized bodyaches and did have elevated liver enzymes questionable abdominal source 2- inflammatory markers pending and ultrasound of the abdomin did not show any acute process biliary stent appreciated 3-patient did have resolution of her fever and patient white count normalized we will discontinue vancomycin with a culture negative on cefepime transition to short course of Ceftin on discharge Dictation was produced using [employer] dictation software. please excuse any grammatical, word or spelling errors. Time with Patient: Less than 30
[2024-01-15 22:25] VITALS: RESP 18
--- NOTE | 2024-01-16 05:12 | P.PN ---
Subjective Progress Note Date: 01/15/24 This is a pleasant 73-year-old female who was recently admitted with neutropenic fever and hyponatremia with pancytopenia being closely monitored. Patient with history of ovarian cancer currently undergoing infectious disease and oncology following and patient is maintained on antibiotics and cultures thus far been negative. Patient had a follow-up abdominal ultrasound with no acute findings noted. White count has improved and hemoglobin remained stable at 8.8 with no active bleeding noted. Patient is tolerating more of her diet and denies nausea or vomiting. Patient denies any diarrhea at this time and reports is feeling slightly improved. Patient with generalized weakness was evaluated by physical therapy doing well. Plan is for returning home once discharged. Review of systems: Constitutional: No reports of fatigue, fever, or chills Cardiovascular: No reports of chest pain or palpitations Respiratory: No reports of shortness of breath or cough GI: No reports of nausea, no reports of vomiting, no diarrhea : No reports of dysuria or retention Neurovascular: reports of generalized weakness although feels is improving All medications have been reviewed PHYSICAL EXAMINATION: GENERAL: The patient is alert and oriented x4, Well developed, well nourished. Elderly appearing HEENT: Pupils are round and equally reacting to light. EOMI. no scleral icterus. No conjunctival pallor. Normocephalic, atraumatic. No pharyngeal erythema. No thyromegaly. CARDIOVASCULAR: S1 and S2 muffled PULMONARY: diminished breath sounds bilaterally with no wheezing or rhonchi noted. ABDOMEN: soft. Nontender on exam. non-distended, normoactive bowel sounds. No palpable organomegaly. MUSCULOSKELETAL: No joint swelling or deformity. EXTREMITIES: No cyanosis, clubbing, or pedal edema. NEUROLOGICAL: Gross neurological examination did not reveal any focal deficits. Diffuse weakness SKIN: No rashes. Assessment: Neutropenic fever status postchemotherapy for ovarian cancer Hyponatremia, improving Pancytopenia Acute kidney injury secondary to volume loss, improving Hypomagnesemia secondary to volume loss, improving Elevated LFTs, trending down History of ovarian cancer currently receiving chemotherapy GI prophylaxis DVT prophylaxis Full code Plan: Recommend to continue with current medications and management with infectious disease and oncology following. Patient is maintained on antibiotics and cultures thus far have been negative Recommend PT/OT therapy and increased activity as tolerated. Patient reports she was up and walking today encouraged oral intake and supplements with meals. Repeat labs in the a.m., replace electrolytes per protocol Will discuss with infectious disease and oncology and likely transition to a short course of oral antibiotics with possible discharge in the next 24 hours Patient plans on returning home once discharged The impression and plan of care has been dictated by Emelia Mukherjee, nurse practitioner as directed. Dr. René MD I have performed a history and examination and MDM of this patient, discussed the same with the dictator, and agree with the dictator's assessment and plan as written ,documented as a scribe. Based on total visit time, I have performed more than 50% of the visit. Any additional findings or plans will be noted. Objective - Vital Signs Vital signs: Vital Signs Temp 97.6 F 01/15/24 08:00 Pulse 85 01/15/24 08:00 Resp 16 01/15/24 08:00 BP 113/69 01/15/24 08:00 Pulse Ox 97 01/15/24 08:00 FiO2 Intake & Output 01/14/24 01/15/24 01/15/24 18:59 06:59 18:59 Intake Total 240 Balance 240 Weight 64.41 kg Intake: Oral 240 Other: Voiding Method Bedside Commode Bedside Commode # Voids 1 - Labs CBC & Chem 7: 01/15/24 10:03 01/15/24 10:03 Labs: Microbiology - Last 24 Hours (Table) 01/12/24 22:15 Blood Culture - Preliminary Blood 01/12/24 22:00 Blood Culture - Preliminary Blood
[2024-01-16 10:26] LABS: African American GFR (CKD) 63 (>60 ml/min/1.73 sqM); Non-African American GFR(CKD) 55 (>60 ml/min/1.73 sqM)
[2024-01-16 10:32] LABS: Magnesium 1.5 mg/dL (1.6-2.3)
--- NOTE | 2024-01-16 11:08 | CDI ---
Date: 01/16/2024 11:05:00 AM From: Wendy Lal Phone: [phone] Admit Date: 01/12/2024 11:47:00 PM Patient Name: Miranda Pena Visit Number: [id number] Discharge Date: ATTENTION: The Clinical Documentation Specialists (CDI) and [facility] Coding Staff appreciate your assistance in clarifying documentation. Please respond to the clarification below the line at the bottom and electronically sign. The CDI & [facility] Coding staff will review the response and follow-up if needed. Please note: Queries are made part of the Legal Health Record. If you have any questions, please contact the author of this message via ITS. Dr. Matt Merritt: The Registered Dietitian assessment on 01/13 indicates this patient meets criteria for chronic severe malnutrition. Based on this information and the findings below, is there an additional diagnosis that is clinically appropriate for this patient? History/Risk Factors: Ovarian cancer on chemotherapy, AFib who presents with generalized weakness and body aches admitted with Neutropenic fevers, hyponatremia, FAWN and pancytopenia Clinical Indicators: 01/13 Patient weight: 64.41 kg Patient height: 5ft 4in BMI: 24.3 01/11, 01/13 Total Protein: 6.3, 5.2 01/13 RD Assessment, Nutrition Diagnosis: "Malnutrition, chronic, severe, related to ovarian CA and chemotherapy causing diminished appetite." Treatment: RD Assessment, Healthy Heart Diet, Ensure Clear TID with meals Is there an additional diagnosis that is clinically appropriate for this patient? [ ] Mild Protein-Calorie Malnutrition [ ] Moderate Protein-Calorie Malnutrition [ ] Severe Protein-Calorie Malnutrition [ x ] No additional diagnosis/Not clinically significant [ ] Other condition, please specify [ ] Unable to Determine MTDD
[2024-01-16 11:56] VITALS: BP 117/74; PULSE 103; TEMP 98
--- NOTE | 2024-01-16 15:31 | P.PN ---
Subjective Progress Note Date: 01/16/24 Principal diagnosis: Reason for follow-up is febrile neutropenia Patient is a 73-year-old female past medical history significant for atrial fibrillation history of ovarian cancer on chemotherapy presenting to the hospital for evaluation of generalized weakness and bodyaches, patient did have a fever no white count initial workup negative. On today's evaluation that is 01/16/2024, patient has been afebrile, patient is breathing comfortably and is currently on room air, patient denies having any significant cough no chest pain shortness of breath, patient denies nausea vomiting or diarrhea and no abdominal pain, feeling better. Patient white count of 6.2 as of yesterday no CBC was done today creatinine is 1.01 magnesium is 1.5 culture has been negative Objective - Vital Signs Vital signs: Vital Signs Temp 98 F 01/16/24 11:27 Pulse 103 H 01/16/24 11:27 Resp 18 01/16/24 11:27 BP 117/74 01/16/24 11:27 Pulse Ox 97 01/16/24 11:27 FiO2 Intake & Output 01/15/24 01/16/24 01/16/24 18:59 06:59 18:59 Intake Total 720 200 Balance 720 200 Intake: Oral 720 200 Other: Voiding Method Bedside Commode Bedside Commode Bedside Commode # Voids 1 2 - Exam GENERAL DESCRIPTION: An elderly female up in the chair in no distress RESPIRATORY SYSTEM: Unlabored breathing , decreased breath sounds at bases HEART: S1 S2 regular rate and rhythm , ABDOMEN: Soft , no tenderness EXTREMITIES: No edema feet - Labs CBC & Chem 7: 01/15/24 10:03 01/16/24 08:49 Labs: Abnormal Lab Results - Last 24 Hours (Table) 01/15/24 01/15/24 01/16/24 Range/Units 10:03 10:03 08:49 RBC 2.76 L (3.80-5.40) m/uL Hgb 8.2 L (11.4-16.0) gm/dL Hct 25.7 L (34.0-46.0) % RDW 16.0 H (11.5-15.5) % Plt Count 91 L (150-450) k/uL Lymphocytes # (Manual) 0.74 L (1.0-4.8) k/uL Metamyelocytes # (Man) 0.19 H (0) k/uL Sodium 135 L (137-145) mmol/L Chloride 111 H (98-107) mmol/L Carbon Dioxide 18 L (22-30) mmol/L BUN 18 H (7-17) mg/dL Glucose 101 H (74-99) mg/dL Magnesium 1.5 L (1.6-2.3) mg/dL Microbiology - Last 24 Hours (Table) 01/14/24 16:30 Blood Culture - Preliminary Blood 01/12/24 22:15 Blood Culture - Preliminary Blood 01/12/24 22:00 Blood Culture - Preliminary Blood Assessment and Plan (1) Neutropenic fever Current Visit: Yes Status: Acute Code(s): D70.9 - NEUTROPENIA, UNSPECIFIED; R50.81 - FEVER PRESENTING WITH CONDITIONS CLASSIFIED ELSEWHERE SNOMED Code(s): 360148075 Plan: 1patient presented to hospital with fever and this patient also noticed to be neutropenic from her chemotherapy symptom has been mostly fever generalized bodyaches and did have elevated liver enzymes questionable abdominal source 2- ultrasound of the abdomin did not show any acute process biliary stent appreciated 3-patient did have resolution of her fever and patient white count normalized, culture has been negative, patient to continue cefepime transition to short course of Ceftin on discharge Question concern answered Dictation was produced using Hotreader dictation software. please excuse any grammatical, word or spelling errors. Time with Patient: Less than 30
--- NOTE | 2024-01-18 06:35 | P.DS ---
Providers Date of admission: 01/12/24 23:47 Expected date of discharge: 01/16/24 Attending physician: Nicole Bailey Consults: 01/13/24 00:00 Consult Physician Routine Consulting Provider: Artie Michaud Consult Reason/Comments: neutropenic fever Do you want consulting provider notified?: Yes, Notify in am 01/13/24 09:05 Consult Physician Routine Consulting Provider: Colin Sequeira Consult Reason/Comments: fever Do you want consulting provider notified?: Yes Primary care physician: Kevin Walker MD Hospital Course: Final diagnosis Neutropenic fever status postchemotherapy for ovarian cancer Hyponatremia, improving Pancytopenia Acute kidney injury secondary to volume loss, improving Hypomagnesemia secondary to volume loss, improving Elevated LFTs, trending down Moderate protein calorie malnutrition with a BMI of 24.4 History of ovarian cancer currently receiving chemotherapy GI prophylaxis DVT prophylaxis Full code Discharge disposition Patient is being discharged in a stable condition with guarded prognosis to home. Patient will follow-up with Dr. Walker in the outpatient setting upon discharge. Patient is to continue with oral Ceftin on discharge and close outpatient follow-up with oncology as scheduled. Total time taken is greater than 35 minutes. Hospital course This is a 73-year-old female who was recently admitted with neutropenic fever status postchemotherapy currently ongoing for ovarian cancer. Patient also with electrolyte abnormalities and acute kidney injury with diarrhea and reduced appetite. Electrolytes replaced and cultures have been negative. Patient will transition to oral Ceftin on discharge and close outpatient follow-up with infectious disease and oncology. Patient has been cleared by consultations for discharge home. Please refer to other consultation notes for further HPI. Currently no reports of chest pain, shortness of breath, or palpitations. Patient is afebrile. No reports of nausea or vomiting and patient is tolerating diet. Patient will be discharged home today. Guarded prognosis given patient's significant comorbidities and ongoing chemotherapy Physical exam: Gen: This is a 73-year-old female who is awake, alert and oriented x 3, well- developed, thin built, elderly appearing HEENT: Head is atraumatic, normocephalic. Pupils equal, round. Sclerae is anicteric. NECK: Supple. No JVD. No lymphadenopathy. No thyromegaly. LUNGS: Clear to auscultation. No wheezes or rhonchi. No intercostal retractions. HEART: Regular rate and rhythm. No murmur. ABDOMEN: Soft. Bowel sounds are present. No masses. No tenderness. EXTREMITIES: No pedal edema. No calf tenderness. NEUROLOGICAL: Patient is awake, alert and oriented x3. Cranial nerves 2 through 12 are grossly intact. Please refer to medication reconciliation sheet for a list of medications. The impression and plan of care has been dictated by Emelia Mukherjee, Nurse Practitioner as directed. Dr. René MD I have performed a history and examination and MDM of this patient, discussed the same with the dictator, and agree with the dictator's assessment and plan as written ,documented as a scribe. Based on total visit time, I have performed more than 50% of the visit. Patient Condition at Discharge: Fair Plan - Discharge Summary Discharge Rx Participant: No New Discharge Prescriptions: New Magnesium Oxide [Mag-Ox] 400 mg PO TID 7 Days #21 tablet cefUROXime axetiL [Ceftin] 500 mg PO BID 7 Days #14 tab Apixaban [Eliquis] 5 mg PO BID #60 tab Acetaminophen Tab [Tylenol] 650 mg PO Q6HR PRN tab PRN Reason: Mild Pain Or Fever > 100.5 Continue ondansetron HCL [Zofran] 8 mg PO Q8HR PRN PRN Reason: Nausea And Vomiting Prochlorperazine [Compazine] 10 mg PO Q6H PRN PRN Reason: Nausea And Vomiting Pantoprazole Sodium [Protonix] 40 mg PO DAILY oxyCODONE HCL [OxyIR] 5 mg PO Q6H PRN PRN Reason: Pain Pyridoxine HCl (Vitamin B6) [Vitamin B-6] 100 mg PO DAILY Biotin 5 mg PO DAILY Metoprolol Tartrate [Lopressor] 50 mg PO BID amLODIPine [Norvasc] 10 mg PO DAILY PRN PRN Reason: HIGH BLOOD PRESSURE Cholecalciferol (Vitamin D3) [Vitamin D3 (50 Mcg = 2000 Iu)] 50 mcg PO DAILY Discontinued Apixaban [Eliquis] 2.5 mg PO BID Discharge Medication List Biotin 5 mg PO DAILY 01/12/24 [History] Cholecalciferol (Vitamin D3) [Vitamin D3 (50 Mcg = 2000 Iu)] 50 mcg PO DAILY 01/12/24 [History] Metoprolol Tartrate [Lopressor] 50 mg PO BID 01/12/24 [History] Pantoprazole Sodium [Protonix] 40 mg PO DAILY 01/12/24 [History] Prochlorperazine [Compazine] 10 mg PO Q6H PRN 01/12/24 [History] Pyridoxine HCl (Vitamin B6) [Vitamin B-6] 100 mg PO DAILY 01/12/24 [History] amLODIPine [Norvasc] 10 mg PO DAILY PRN 01/12/24 [History] ondansetron HCL [Zofran] 8 mg PO Q8HR PRN 01/12/24 [History] oxyCODONE HCL [OxyIR] 5 mg PO Q6H PRN 01/12/24 [History] Acetaminophen Tab [Tylenol] 650 mg PO Q6HR PRN tab 01/16/24 [Rx] Apixaban [Eliquis] 5 mg PO BID #60 tab 01/16/24 [Rx] Magnesium Oxide [Mag-Ox] 400 mg PO TID 7 Days #21 tablet 01/16/24 [Rx] cefUROXime axetiL [Ceftin] 500 mg PO BID 7 Days #14 tab 01/16/24 [Rx] Follow up Appointment(s)/Referral(s): Hardik Almaguer [STAFF PHYSICIAN] - 02/20/24 2:00 pm ([facility] Location ) Kevin Walker MD [Primary Care Provider] - 01/21/24 9:15 am [facility], [NON-STAFF] - Patient Instructions/Handouts: Neutropenia (DC) Activity/Diet/Wound Care/Special Instructions: Activity limited until follow-up Follow-up with primary care provider on discharge Follow-up with oncology outpatient Continue taking medications as prescribed Continue antibiotics until complete Discharge Disposition: HOME WITH HOME HEALTH SERVICES
--- NOTE | 2024-01-23 13:55 | CDI ---
Documentation Clarification Form Date: 01/23/2024 01:32:50 PM From: Carole Dacosta Admit Date: 01/12/2024 11:47:00 PM Patient Name: Miranda Pena Visit Number: [id number] Discharge Date: 01/16/2024 04:50:00 PM ATTENTION: The Clinical Documentation Specialists (CDI) and [facility] Coding Staff appreciate your assistance in clarifying documentation. Please respond to the clarification below the line at the bottom and electronically sign. The CDI & [facility] Coding staff will review the response and follow-up if needed. Please note: Queries are made part of the Legal Health Record. If you have any questions, please contact the author of this message via ITS. Dr. Matt Merritt Sepsis is documented in the ED note from 01/12/24 and Severe Sepsis is documented in the consult note 01/13/24, but is not noted in subsequent documentation including the discharge summary. Clarification is requested. History/Risk Factors: patient is a 73 year old female with a history significant for ovarian cancer on chemotherapy, and chronic atrial fibrillation on Eliquis. Clinical Indicators: patient presented with complaints of generalized weakness, full body pain, and chills. She received chemotherapy last week. After chemo she developed severe full body pains, her oncologist placed her on gabapentin and oxycodone. The gabapentin made her feel confused so she stopped taking it. She is diagnosed with neutropenic fever, sepsis, and pancytopenia due to chemotherapy. Labs: WBC: 0.9, HGB: 9.9, Sodium: 129, BUN 37, Creat 1.55, lactic acid 1.2 Vitals: Temp: 100.1, Pulse 144, RR 18, BP 107/79 O2 96 Treatment: vanco/cefepime for febrile neutropenia. Started on G-CSF until ANC improves, hold eliquis, hydration with IV fluids Please clarify if the Sepsis is: [ ] Sepsis confirmed [ ] Severe Sepsis confirmed [x ] Sepsis ruled out [ ] Other condition, please specify [ ] Unable to determine MTDD
== END 2024-01-16 16:50 | disposition home health service (06) | DRG 809 ==
LOC: EC 19:35 → 3SCARD 23:47
PROVIDERS: ADMIT Hospitalist; ATTEND Hospitalist
DX: D70.1 Agranulocytosis secondary to cancer chemotherapy (principal); C56.9 Malignant neoplasm of unspecified ovary; N17.9 Acute kidney failure, unspecified; E44.0 Moderate protein-calorie malnutrition; E87.1 Hypo-osmolality and hyponatremia; I48.20 Chronic atrial fibrillation, unspecified; D61.810 Antineoplastic chemotherapy induced pancytopenia; R74.01 Elevation of levels of liver transaminase levels; Z68.24 Body mass index [BMI] 24.0-24.9, adult; G89.3 Neoplasm related pain (acute) (chronic); E83.42 Hypomagnesemia; R50.81 Fever presenting with conditions classified elsewhere; T45.1X5A Adverse effect of antineoplastic and immunosuppressive drugs, initial encounter; Z79.899 Other long term (current) drug therapy; Z79.01 Long term (current) use of anticoagulants
CPT/HCPCS: 36415; 71046; 76700; 80048; 80053; 80202; 81003; 82565; 83605; 83735; 84484; 85025; 85610; 85730; 87040; 87636; 93005; 94760; 96361; 96365; 96366; 96367; 96368; 99285

== ENCOUNTER 2024-11-09 12:31 | Inpatient (IN) | payer MEDICARE, OTHER ==
--- NOTE | 2024-11-09 12:50 | ED ---
Weakness HPI - General Chief complaint: Recheck/Abnormal Lab/Rx Stated complaint: weak Time Seen by Provider: 11/09/24 12:38 Source: patient, family, RN notes reviewed Mode of arrival: wheelchair Limitations: no limitations - History of Present Illness Initial comments: This is a 74-year-old female who presents to the emergency department for generalized weakness. Patient has a history of ovarian cancer and is currently receiving a Avastin treatments. Her last treatment was on 10/31. She has received this treatment many times before, however states that shortly after receiving this one she became very rundown and weak. States that it feels like it took all of the energy out of her. She has aches in many of her joints and has also started to develop some nausea, however she denies any vomiting. Family is concerned that she has not been eating or drinking. She does report a cough. Denies any chest pain or shortness of breath. 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 Follows with Mike Garcia and is getting a stent replaced next week. Denies any abdominal pain or problems with this. MD Complaint: generalized weakness - Related Data Home Medications Medication Instructions Recorded Confirmed Cholecalciferol (Vitamin D3) 50 mcg PO DAILY 01/12/24 11/09/24 [Vitamin D3 (50 Mcg = 2000 Iu)] Pantoprazole Sodium [Protonix] 40 mg PO DAILY 01/12/24 11/09/24 Pyridoxine HCl (Vitamin B6) 100 mg PO DAILY 01/12/24 11/09/24 [Vitamin B-6] amLODIPine [Norvasc] 10 mg PO DAILY 01/12/24 11/09/24 Apixaban [Eliquis] 2.5 mg PO BID 11/09/24 11/09/24 Ascorbic Acid [Vitamin C] 1,000 mg PO DAILY 11/09/24 11/09/24 Cyanocobalamin (Vitamin B-12) 1,000 mcg PO DAILY 11/09/24 11/09/24 [Vitamin B-12] Metoprolol Tartrate [Lopressor] 50 mg PO BID 11/09/24 11/09/24 Allergies Allergy/AdvReac Type Severity Reaction Status Date / Time No Known Allergies Allergy Verified 11/09/24 15:48 Review of Systems ROS Statement: Those systems with pertinent positive or pertinent negative responses have been documented in the HPI. ROS Other: All systems not noted in ROS Statement are negative. Past Medical History Past Medical History: Atrial Fibrillation, Cancer Additional Past Medical History / Comment(s): Billiary stents, Ovarian cancer current chemo History of Any Multi-Drug Resistant Organisms: None Reported Past Surgical History: No Surgical Hx Reported Past Anesthesia/Blood Transfusion Reactions: No Reported Reaction Smoking Status: Never smoker Past Alcohol Use History: None Reported Past Drug Use History: None Reported General Exam Limitations: no limitations General appearance: alert, in no apparent distress Head exam: Present: atraumatic, normocephalic, normal inspection Respiratory exam: Present: normal lung sounds bilaterally. Absent: respiratory distress, wheezes, rales, rhonchi, stridor Cardiovascular Exam: Present: regular rate, normal rhythm, normal heart sounds. Absent: systolic murmur, diastolic murmur, rubs, gallop, clicks GI/Abdominal exam: Present: soft, normal bowel sounds. Absent: distended, tenderness, guarding, rebound, rigid Neurological exam: Present: alert, oriented X3, CN II-XII intact Psychiatric exam: Present: normal affect, normal mood Skin exam: Present: warm, dry, intact, normal color. Absent: rash Course Vital Signs 11/09/24 11/09/24 11/09/24 12:34 13:50 14:31 Temperature 99.4 F 98.8 F Pulse Rate 96 90 Respiratory 20 18 Rate Blood Pressure 124/75 130/87 O2 Sat by Pulse 97 96 Oximetry 11/09/24 15:34 Temperature Pulse Rate 88 Respiratory 18 Rate Blood Pressure 126/74 O2 Sat by Pulse Oximetry Medical Decision Making - Medical Decision Making This is a 74-year-old female who presents to the emergency department for generalized weakness. Was pt. sent in by a medical professional or institution? @ -No Did you speak to anyone other than the patient for history? @ -No Did you review nursing and triage notes? @ -Yes, and I agree, it is accurate with regards to the patient's symptoms. Were old charts reviewed? @ -No Differential Diagnosis? @ -Differential Weakness: Hypoglycemia, shock, sepsis, hyponatremia, anemia, infection, TX, ETOH, adverse medicine reaction, overdose, stroke, this is not meant to be an all-inclusive list. EKG interpreted by me (3pts min.)? @ -EKG interpreted by me demonstrating the following: Sinus rhythm. Ventricular rate 89 bpm, TN interval 139 ms, QRS duration 84 ms, QTc 398 ms. X-rays interpreted by me (1pt min.)? @ -Chest x-ray obtained, my interpretation identifies no localized consolidations or infiltrates. CT interpreted by me (1pt min.)? @ -Not obtained U/S interpreted by me (1pt. min.)? @ -Not obtained What testing was considered but not performed? (CT, X-rays, U/S, labs)? Why? @ -None What meds were considered but not given? Why? @ -None Did you discuss the management of the patient with other professionals? @ -Yes, Dr. Beaver, who accepts the patient for admission. Did you reconcile home meds? @ -Yes Was smoking cessation discussed for >3mins.? @ -No Was critical care preformed (if so, how long)? @ -No Were there social determinants of health that impacted care today? How? (Homelessness, low income, unemployed, alcoholism, drug addiction, transportation, low edu. Level, literacy, decrease access to med. care, assisted, rehab)? @ -No Was there de-escalation of care discussed even if they declined? (Discuss DNR or withdrawal of care, Hospice)? @ -No What co-morbidities impacted this encounter? (DM, HTN, Smoking, COPD, CAD, Cancer, CVA, Hep., AIDS, mental health diagnosis, sleep apnea, morbid obesity)? @ -Ovarian cancer Was patient admitted / discharged? @ -Admitted. Lab work demonstrates signs of dehydration and decreased renal function when compared with prior. Creatinine is 1.35 and eGFR 38. Additional ly, magnesium is low at 1.0. Urinalysis consistent with infection and urine was sent for culture. Patient's LFTs are elevated. Patient has a chronic blockage in her biliary duct and states that her liver enzymes fluctuate very frequently. She denies any pain or complications with this. Currently follows with Mike Garcia and is going to have the stent replaced next week. This is not related to her current visit and no GI intervention is needed at this point. 4 g of magnesium sulfate and 800 mg of magnesium oxide were administered. Blood and urine cultures were obtained and she was given 1 g of ceftriaxone. Patient admitted to medicine for the UTI, hypomagnesemia, FAWN, and weakness. Consult placed for hem/onc. Case discussed with ED attending Dr. Vogel. Undiagnosed new problem with uncertain prognosis? @ -None Drug Therapy requiring intensive monitoring for toxicity (Heparin, Nitro, Insulin, Cardizem)? @ -None Were any procedures done? @ -None Diagnosis/symptom? @ -UTI, hypomagnesemia, weakness, FAWN Acute, or Chronic, or Acute on Chronic? @ -Acute Uncomplicated (without systemic symptoms) or Complicated (systemic symptoms)? @ -Complicated Side effects of treatment? @ -None Exacerbation, Progression, or Severe Exacerbation] @ -Not applicable Poses a threat to life or bodily function? @ -Yes, patient struggling to function due to her symptoms - Lab Data Result diagrams: 11/09/24 13:30 11/09/24 13:30 Lab Results 11/09/24 11/09/24 11/09/24 Range/Units 13:30 13:30 13:30 WBC 5.6 (3.8-10.6) k/uL RBC 2.13 L (3.80-5.40) m/uL Hgb 9.0 L (11.4-16.0) gm/dL Hct 27.1 L (34.0-46.0) % MCV 127.3 H (80.0-100.0) fL MCH 42.4 H (25.0-35.0) pg MCHC 33.3 (31.0-37.0) g/dL RDW 19.3 H (11.5-15.5) % Plt Count 26 L (150-450) k/uL MPV 11.3 Neutrophils % Not Reportable Neutrophils % (Manual) 57 % Lymphocytes % Not Reportable Lymphocytes % (Manual) 38 % Monocytes % Not Reportable Monocytes % (Manual) 2 % Eosinophils % Not Reportable Basophils % Not Reportable Basophils % (Manual) 3 % Neutrophils # Not Reportable Neutrophils # (Manual) 3.19 (1.3-7.7) k/uL Lymphocytes # Not Reportable Lymphocytes # (Manual) 2.13 (1.0-4.8) k/uL Monocytes # Not Reportable Monocytes # (Manual) 0.11 (0-1.0) k/uL Eosinophils # Not Reportable Basophils # Not Reportable Basophils # (Manual) 0.17 (0-0.2) k/uL Nucleated RBCs 0 (0-0) /100 WBC Manual Slide Review Performed Anisocytosis Slight Macrocytosis Marked A Sodium 133 L (137-145) mmol/L Potassium 3.9 (3.5-5.1) mmol/L Chloride 100 (98-107) mmol/L Carbon Dioxide 22 (22-30) mmol/L Anion Gap 11 mmol/L BUN 26 H (7-17) mg/dL Creatinine 1.35 H (0.52-1.04) mg/dL Est GFR (CKD-EPI)AfAm 44 (>60 ml/min/1.73 sqM) Est GFR (CKD-EPI)NonAf 38 (>60 ml/min/1.73 sqM) Glucose 107 H (74-99) mg/dL Plasma Lactic Acid [place] 0.9 (0.7-2.0) mmol/L Calcium 9.3 (8.4-10.2) mg/dL Phosphorus 3.5 (2.5-4.5) mg/dL Magnesium 1.0 L (1.6-2.3) mg/dL Total Bilirubin 5.4 H (0.2-1.3) mg/dL AST 143 H (14-36) U/L ALT 89 H (4-34) U/L Alkaline Phosphatase 524 H (38-126) U/L Total Protein 7.2 (6.3-8.2) g/dL Albumin 3.4 L (3.5-5.0) g/dL Urine Color Urine Appearance (Clear) Urine pH (5.0-8.0) Ur Specific [place] (1.001-1.035) Urine Protein (Negative) Urine Glucose (UA) (Negative) Urine Ketones (Negative) Urine Blood (Negative) Urine Nitrite (Negative) Urine Bilirubin (Negative) Urine Urobilinogen (<2.0) mg/dL Ur Leukocyte Esterase (Negative) Urine RBC (0-5) /hpf Urine WBC (0-5) /hpf Urine Bacteria (None) /hpf Urine Mucus (None) /hpf Influenza Type A (PCR) (Not Detectd) Influenza Type B (PCR) (Not Detectd) RSV (PCR) (Not Detectd) SARS-CoV-2 (PCR) (Not Detectd) 11/09/24 11/09/24 Range/Units 13:30 13:50 WBC (3.8-10.6) k/uL RBC (3.80-5.40) m/uL Hgb (11.4-16.0) gm/dL Hct (34.0-46.0) % MCV (80.0-100.0) fL MCH (25.0-35.0) pg MCHC (31.0-37.0) g/dL RDW (11.5-15.5) % Plt Count (150-450) k/uL MPV Neutrophils % Neutrophils % (Manual) % Lymphocytes % Lymphocytes % (Manual) % Monocytes % Monocytes % (Manual) % Eosinophils % Basophils % Basophils % (Manual) % Neutrophils # Neutrophils # (Manual) (1.3-7.7) k/uL Lymphocytes # Lymphocytes # (Manual) (1.0-4.8) k/uL Monocytes # Monocytes # (Manual) (0-1.0) k/uL Eosinophils # Basophils # Basophils # (Manual) (0-0.2) k/uL Nucleated RBCs (0-0) /100 WBC Manual Slide Review Anisocytosis Macrocytosis Sodium (137-145) mmol/L Potassium (3.5-5.1) mmol/L Chloride (98-107) mmol/L Carbon Dioxide (22-30) mmol/L Anion Gap mmol/L BUN (7-17) mg/dL Creatinine (0.52-1.04) mg/dL Est GFR (CKD-EPI)AfAm (>60 ml/min/1.73 sqM) Est GFR (CKD-EPI)NonAf (>60 ml/min/1.73 sqM) Glucose (74-99) mg/dL Plasma Lactic Acid [place] (0.7-2.0) mmol/L Calcium (8.4-10.2) mg/dL Phosphorus (2.5-4.5) mg/dL Magnesium (1.6-2.3) mg/dL Total Bilirubin (0.2-1.3) mg/dL AST (14-36) U/L ALT (4-34) U/L Alkaline Phosphatase (38-126) U/L Total Protein (6.3-8.2) g/dL Albumin (3.5-5.0) g/dL Urine Color Yellow Urine Appearance Cloudy H (Clear) Urine pH 5.5 (5.0-8.0) Ur Specific [place] 1.014 (1.001-1.035) Urine Protein 1+ H (Negative) Urine Glucose (UA) Negative (Negative) Urine Ketones Negative (Negative) Urine Blood Moderate H (Negative) Urine Nitrite Negative (Negative) Urine Bilirubin 1+ H (Negative) Urine Urobilinogen 4.0 (<2.0) mg/dL Ur Leukocyte Esterase Large H (Negative) Urine RBC 12 H (0-5) /hpf Urine WBC 26 H (0-5) /hpf Urine Bacteria Many H (None) /hpf Urine Mucus Rare H (None) /hpf Influenza Type A (PCR) Not Detected (Not Detectd) Influenza Type B (PCR) Not Detected (Not Detectd) RSV (PCR) Not Detected (Not Detectd) SARS-CoV-2 (PCR) Not Detected (Not Detectd) - Radiology Data Radiology results: report reviewed, image reviewed Disposition Clinical Impression: UTI (urinary tract infection), Hypomagnesemia, Weakness, FAWN (acute kidney injury) Disposition: ADMITTED IP TO THIS HOSP Condition: Fair
--- NOTE | 2024-11-09 13:29 | XR ---
Chest, 2 view. HISTORY: Weakness COMPARISON: 01/12/2024 TECHNIQUE: PA and lateral views the chest are obtained. FINDINGS: There has been interval insertion of a right Mediport catheter, the tip of which is in the SVC/right junction. The lungs are clear and there is no consolidative or interstitial opacity. There is no pleural effusion or pneumothorax. The heart, pulmonary vasculature, mediastinum and zeus appear normal. The osseous structures are intact. IMPRESSION: No significant abnormality seen. No acute cardiopulmonary disease. [facility], , 11/09/2024 1:27 PM
[2024-11-09 13:51] LABS: Anisocytosis Slight; HCT 27.1 % (34.0-46.0); MCHC 33.3 g/dL (31.0-37.0); MCV 127.3 fL (80.0-100.0); Macrocytosis Marked; Mean Platelet Volume 11.3; RBC 2.13 m/uL (3.80-5.40); RDW 19.3 % (11.5-15.5); WBC 5.6 k/uL (3.8-10.6)
[2024-11-09] MEDS: SODIUM CHLORIDE 0.9% 1,000 ML IV STA (13:51)
[2024-11-09 14:09] LABS: MCH 42.4 pg (25.0-35.0)
[2024-11-09 14:10] LABS: Platelet Count 26 k/uL (150-450)
[2024-11-09 14:20] LABS: Appearance,Urine Cloudy (Clear); Bacteria,Urine Many /hpf; Bilirubin,Urine 1+ (Negative); Blood,Urine Moderate (Negative); Color,Urine Yellow; Glucose,Urine (UA) Negative (Negative); Ketones,Urine Negative (Negative); Leukocyte Esterase,Urine Large (Negative); Mucus,Urine Rare /hpf; Nitrite,Urine Negative (Negative); PH, Urine 5.5 (5.0-8.0); Protein,Urine 1+ (Negative); RBC,Urine 12 /hpf (0-5); Specific Gravity,Urine 1.014 (1.001-1.035); WBC,Urine 26 /hpf (0-5)
[2024-11-09 14:28] LABS: ALT 89 U/L (4-34); AST 143 U/L (14-36); African American GFR (CKD) 44 (>60 ml/min/1.73 sqM); Albumin 3.4 g/dL (3.5-5.0); Alkaline Phosphatase 524 U/L (38-126); Anion Gap 11 mmol/L; Basophils # (M) 0.17 k/uL (0-0.2); Blood Urea Nitrogen 26 mg/dL (7-17); Calcium 9.3 mg/dL (8.4-10.2); Carbon Dioxide 22 mmol/L (22-30); Chloride 100 mmol/L (98-107); Glucose 107 mg/dL (74-99); Lymphocytes # (M) 2.13 k/uL (1.0-4.8); Monocytes # (M) 0.11 k/uL (0-1.0); Neutrophils # (M) 3.19 k/uL (1.3-7.7); Neutrophils % (M) 57 %; Non-African American GFR(CKD) 38 (>60 ml/min/1.73 sqM); Nucleated Red Blood Cells 0 /100 WBC (0-0); Phosphorus 3.5 mg/dL (2.5-4.5); Potassium 3.9 mmol/L (3.5-5.1); Sodium 133 mmol/L (137-145); Total Bilirubin 5.4 mg/dL (0.2-1.3); Total Cells Counted 100; Total Protein 7.2 g/dL (6.3-8.2)
[2024-11-09 14:29] LABS: Influenza A Not Detected (Not Detectd); Influenza B Not Detected (Not Detectd); RSV Not Detected (Not Detectd)
[2024-11-09] MEDS ORDERED: MORPHINE SULFATE 4 MG/ML SYRINGE IV PRN (15:00)
[2024-11-09] MEDS ORDERED: ACETAMINOPHEN TAB 325 MG TAB PO PRN (15:00)
[2024-11-09] MEDS ORDERED: ONDANSETRON 4 MG/2 ML VIAL IVP PRN (15:00)
[2024-11-09] MEDS ORDERED: NALOXONE 0.4 MG/ML 1 ML VIAL IV PRN (15:00)
[2024-11-09] MEDS: MAGNESIUM OXIDE 400 MG TAB PO STA ×2 (15:24→15:25)
[2024-11-09] MEDS: SODIUM CHLORIDE 0.9% 500 ML 500 ML IV STA (15:29)
[2024-11-09] MEDS: SODIUM CHLORIDE 0.9% 1,000 ML IV SCH (15:30)
[2024-11-09] MEDS: MAGNESIUM SULFATE-D5W PMX 1 GM in DEXTROSE/WATER 1 100ML.BAG IVPB SCH (15:30)
[2024-11-09] MEDS: METOPROLOL TARTRATE 50 MG TAB PO SCH (20:34)
[2024-11-09] MEDS: APIXABAN 2.5 MG TABLET PO SCH (20:34)
[2024-11-10] MEDS ORDERED: PANTOPRAZOLE 40 MG TABLET PO SCH (09:00)
[2024-11-10] MEDS: CYANOCOBALAMIN 500 MCG TAB PO SCH (09:18)
[2024-11-10] MEDS: CHOLECALCIFEROL 25 MCG (1000 IU) TABLET PO SCH (09:18)
[2024-11-10] MEDS: amLODIPine 10 MG TAB PO SCH (09:18)
[2024-11-10] MEDS: PYRIDOXINE 50 MG TAB PO SCH (09:19)
[2024-11-10] MEDS: PANTOPRAZOLE 40 MG/10 ML VIAL IV SCH (09:19)
[2024-11-10] MEDS: ASCORBIC ACID 500 MG TAB PO SCH (09:19)
[2024-11-10] MEDS: DOCUSATE 100 MG CAP PO PRN (14:57)
[2024-11-10] MEDS: CEFEPIME 2 GM in SODIUM CHLORIDE 0.9% 100 ML IVPB SCH (15:23)
[2024-11-10] MEDS: IOPAMIDOL CONTRAST (ORAL USE) VIAL PO PRN (15:24)
--- NOTE | 2024-11-10 17:44 | CT ---
EXAMINATION TYPE: CT abdomen pelvis wo con CT DLP: 425.7 mGycm, Automated exposure control for dose reduction was used. DATE OF EXAM: 11/10/2024 5:11 PM COMPARISON: Abdominal ultrasound 01/14/2024 CLINICAL INDICATION:Female, 74 years old with history of uti sepsis; UTI Sepsis. TECHNIQUE: Standard CT of the abdomen and pelvis following the administration of oral contrast. Cor onal and sagittal reformats were performed. Limited examination due to lack of intravenous contrast. FINDINGS: LOWER CHEST: Posterior dependent subsegmental atelectasis is noted. Coronary artery calcifications. D ense mitral annulus calcifications. ABDOMEN LIVER: Limited examination due to lack of intravenous contrast with biliary stents identified. GALLBLADDER AND BILE DUCTS: Distended gallbladder with biliary stent identified terminating within th e duodenum. Additional 2 biliary stent identified terminating in the small bowel. PANCREAS: Bulky appearance of the pancreatic head. SPLEEN: Unremarkable. ADRENAL GLANDS: Unremarkable noncontrast appearance. KIDNEYS AND URETERS: No evidence of hydronephrosis or renal calculus. The ureters are unremarkable. PELVIS BLADDER: Incompletely distended but grossly unremarkable. REPRODUCTIVE: The uterus is surgically absent. ABDOMEN & PELVIS STOMACH AND BOWEL: Stomach and duodenum are unremarkable. Enteric contrast reaches the mid small bob l. Surgical changes with anastomosis identified in the rectosigmoid region. There is an abnormal soft tissue mass adjacent to the cecum posteriorly measuring 3.1 x 3.0 x 4.5 cm (series 3, and 63). This demonstrates some internal calcifications and some satellite nodularity. There is loss of fat plane w ith the adjacent cecum. No evidence of bowel obstruction. PERITONEUM: No evidence of pneumoperitoneum or free fluid. VASCULATURE: Mild atherosclerotic calcifications are present throughout the abdominal aorta and its b ranches. No evidence of aortic aneurysm. MUSCULOSKELETAL: No acute osseous abnormalities. No aggressive osseous lesion. Minimal grade 1 hermelinda listhesis of L4 on L5 without evidence of pars defects. LYMPH NODES: Left para-aortic peripherally calcified nodules measuring up to 2.2 cm. SOFT TISSUE/ABDOMINAL WALL: Unremarkable IMPRESSION: 1. Indeterminate right lower quadrant soft tissue mass abutting the cecum. This is concerning for pos sible malignancy. Additionally there is left para-aortic soft tissue nodules which may represent lalo opathy. Correlation with clinical history is recommended otherwise consider further evaluation with C T abdomen pelvis with IV contrast. 2. Nonspecific bulky appearance of the pancreatic head with 3 biliary stents identified. Dilated gall bladder also identified. Correlation with prior imaging is recommended otherwise consider MRI abdomen /MRCP. [facility], , 11/10/2024 5:42 PM
[2024-11-10] MEDS: HYDROcodone/APAP 5-325MG 1 EACH TAB PO PRN (18:40)
--- NOTE | 2024-11-10 21:20 | P.CONS ---
History of Present Illness - Reason for Consult Consult date: 11/10/24 ovarian cancer Requesting physician: Catarina Vilchis - Chief Complaint weakness - History of Present Illness Mrs. Pena is a pleasant 74-year-old female with a history of ovarian carcinoma, diagnosed 13 years ago been on treatments. She follows with Dr. Vincent [facility] oncologist at [facility] in [place]. She has a history of biliary stents for obstruction, exchange every 3 months. She has been on Avastin every 3 weeks since May 2024. Patient's counts have been low recently and there was a plan for a bone marrow biopsy in [place], scheduled for . She is currently admitted with urinary tract infection, FAWN and magnesium was noted to be low on admission. Patient denied any dysuria but, she noted some red urine and, on further questioning some suprapubic discomfort. Patient also expectorated a large dried mucus plug from her sinuses. She is going to save the next 1 for assessment. Review of Systems 10 point ROS is neg except as stated in HPI Past Medical History Past Medical History: Atrial Fibrillation, Cancer Additional Past Medical History / Comment(s): Billiary stents, Ovarian cancer current chemo History of Any Multi-Drug Resistant Organisms: None Reported Past Surgical History: No Surgical Hx Reported, Bowel Resection, Hysterectomy Past Anesthesia/Blood Transfusion Reactions: No Reported Reaction Smoking Status: Never smoker Past Alcohol Use History: None Reported Past Drug Use History: None Reported Medications and Allergies Home Medications Medication Instructions Recorded Confirmed Type Cholecalciferol (Vitamin D3) 50 mcg PO DAILY 01/12/24 11/09/24 History [Vitamin D3 (50 Mcg = 2000 Iu)] Pantoprazole Sodium [Protonix] 40 mg PO DAILY 01/12/24 11/09/24 History Pyridoxine HCl (Vitamin B6) 100 mg PO DAILY 01/12/24 11/09/24 History [Vitamin B-6] amLODIPine [Norvasc] 10 mg PO DAILY 01/12/24 11/09/24 History Apixaban [Eliquis] 2.5 mg PO BID 11/09/24 11/09/24 History Ascorbic Acid [Vitamin C] 1,000 mg PO DAILY 11/09/24 11/09/24 History Cyanocobalamin (Vitamin B-12) 1,000 mcg PO DAILY 11/09/24 11/09/24 History [Vitamin B-12] Metoprolol Tartrate [Lopressor] 50 mg PO BID 11/09/24 11/09/24 History Allergies Allergy/AdvReac Type Severity Reaction Status Date / Time No Known Allergies Allergy Verified 11/09/24 15:48 Physical Exam Vitals: Vital Signs Temp Pulse Pulse Resp BP BP Pulse Ox 11/10/24 07:23 98.4 F 86 17 120/73 97 11/10/24 01:10 98.4 F 88 16 126/71 95 11/09/24 20:00 16 11/09/24 19:24 99.3 F 91 16 125/74 95 11/09/24 17:32 98.4 F 84 16 143/69 97 11/09/24 15:34 88 18 126/74 11/09/24 14:31 98.8 F 11/09/24 13:50 90 18 130/87 96 11/09/24 12:34 99.4 F 96 20 124/75 97 Intake and Output 11/09/24 11/10/24 11/10/24 22:59 06:59 14:59 Other: Voiding Method Toilet # Voids 1 2 Weight 64.41 kg - Constitutional General appearance: average body habitus, cooperative, no acute distress - EENT Eyes: anicteric sclerae, EOMI ENT: hearing grossly normal, normal oropharynx - Respiratory Respiratory: bilateral: CTA - Cardiovascular Rhythm: regular Heart sounds: normal: S1, S2 Abnormal Heart Sounds: no systolic murmur, no diastolic murmur, no rub, no S3 Gallop, no S4 Gallop, no click, no other leg Peripheral Edema: bilateral: None - Gastrointestinal General gastrointestinal: no absent bowel sounds, no decreased bowel sounds, no distended, no hepatomegaly, no hyperactive bowel sounds, normal bowel sounds, no organomegaly, no rigid, no scaphoid, soft, no splenomegaly, no tenderness, no umbilical hernia, no ventral hernia - Integumentary Integumentary: normal - Neurologic Neurologic: CNII-XII intact - Musculoskeletal Musculoskeletal: strength equal bilaterally - Psychiatric Psychiatric: A&O x's 3, appropriate affect, intact judgment & insight Results CBC & Chem 7: 11/09/24 13:30 11/09/24 13:30 Labs: Abnormal Lab Results - Last 24 Hours (Table) 11/09/24 11/09/24 11/09/24 Range/Units 13:30 13:30 13:50 RBC 2.13 L (3.80-5.40) m/uL Hgb 9.0 L (11.4-16.0) gm/dL Hct 27.1 L (34.0-46.0) % MCV 127.3 H (80.0-100.0) fL MCH 42.4 H (25.0-35.0) pg RDW 19.3 H (11.5-15.5) % Plt Count 26 L (150-450) k/uL Macrocytosis Marked A Sodium 133 L (137-145) mmol/L BUN 26 H (7-17) mg/dL Creatinine 1.35 H (0.52-1.04) mg/dL Glucose 107 H (74-99) mg/dL Magnesium 1.0 L (1.6-2.3) mg/dL Total Bilirubin 5.4 H (0.2-1.3) mg/dL AST 143 H (14-36) U/L ALT 89 H (4-34) U/L Alkaline Phosphatase 524 H (38-126) U/L Albumin 3.4 L (3.5-5.0) g/dL Urine Appearance Cloudy H (Clear) Urine Protein 1+ H (Negative) Urine Blood Moderate H (Negative) Urine Bilirubin 1+ H (Negative) Ur Leukocyte Esterase Large H (Negative) Urine RBC 12 H (0-5) /hpf Urine WBC 26 H (0-5) /hpf Urine Bacteria Many H (None) /hpf Urine Mucus Rare H (None) /hpf Chest x-ray: report reviewed Assessment and Plan (1) Hypomagnesemia Current Visit: Yes Status: Acute Priority: High Code(s): E83.42 - HYPOMAGNESEMIA SNOMED Code(s): 189314961 (2) UTI (urinary tract infection) Current Visit: Yes Status: Acute Priority: High Code(s): N39.0 - URINARY TRACT INFECTION, SITE NOT SPECIFIED SNOMED Code(s): 45923344 (3) Ovarian cancer Current Visit: Yes Status: Chronic Priority: Medium Code(s): C56.9 - MALIGNANT NEOPLASM OF UNSPECIFIED OVARY SNOMED Code(s): 101207103 Plan: Ovarian cancer -Patient has been followed by [facility] oncologist Dr. Scott De La Rosa for the last 13 years. -Patient most recently on Avastin, every 3 weeks since May 2024 -Nothing acute from an Oncology standpoint -Patient will follow-up as directed. Bicytopenia -Avastin is a VEGF inhibitor, not usually associated with significant drops in blood counts but, it can happen. Patient's counts have been progressively declining from her description. There is a bone marrow biopsy already scheduled for assessment. Hypomagnesia -Patient is on a replacement protocol Urinary tract infection -Patient is being treated for the same, defer to ID Patient is okay from an Oncology standpoint to be discharged once she is able to be transitioned over to oral antibiotics safely. Also, when she has been cleared by IM and ID Doctor attests: I performed a history and physical examination of this patient, developed impression and plan of care. Discussed with dictator. I agree with dictators note, documented as a scribe.
--- NOTE | 2024-11-11 02:18 | HP ---
HISTORY AND PHYSICAL CHIEF COMPLAINT: UTI and weakness. HISTORY OF PRESENT ILLNESS: This 74-year-old woman with a past medical history of multiple medical problems including ovarian cancer, is on chemotherapy, Avastin. The patient is complaining of tiredness and weakness. The patient came to [facility] and was found to have UTI. There is no history of fever or rigors. The patient has a history atrial fibrillation also. The patient has some nausea, some vomiting also. There is no history of fever, rigors, or chills. PAST MEDICAL HISTORY: History of atrial fibrillation, history of biliary stents, history of ovarian cancer, on chemo. Rest of the history and rest of the chart is also reviewed. HOME MEDICATIONS: Reviewed include vitamin B6. Rest of medications reviewed. ALLERGIES: None. FAMILY HISTORY: No history of heart disease or strokes in the family. SOCIAL HISTORY: No history of smoking or alcohol. REVIEW OF SYSTEMS: Fourteen-point review of systems is negative except as mentioned earlier. PHYSICAL EXAMINATION: VITAL SIGNS: Pulse is 81, blood pressure 190/87, and respirations 18. HEENT: Conjunctivae normal. NECK: No JVD. CARDIOVASCULAR: S1 and S2. RESPIRATIONS: Breath sounds diminished at the bases. ABDOMEN: Soft. Mild diffuse discomfort. No mass palpable. LEGS: No edema. NERVOUS SYSTEM: Nonfocal. LABORATORY DATA: Hemoglobin 9. Rest of the labs are noted. ASSESSMENT: 1. Generalized weakness and tiredness, possible sepsis from urinary tract infection. 2. Ovarian cancer, on chemotherapy. 3. Elevated LFTs. 4. Elevated creatinine with mild acute renal failure. 5. Atrial fibrillation. 6. History of biliary stents. 7. Multiple complex medical issues. RECOMMENDATIONS AND DISCUSSION: This 74-year-old woman presented with multiple complex medical issues. We will monitor the patient closely. I would recommend cefepime and cultures. Pain management. Infectious disease evaluation. Hematology/Oncology evaluation. CAT scan of the abdomen and pelvis. I would obtain cultures, urine and blood. Guarded prognosis. Further recommendations to follow. See orders for further details. Resume home medications once they are confirmed. MMODL / IJN: [id number] /
--- NOTE | 2024-11-11 08:10 | P.CONS ---
History of Present Illness - Reason for Consult Consult date: 11/10/24 UTI Requesting physician: Emelia Mukherjee - Chief Complaint Generalized weakness not feeling well x few days - History of Present Illness Patient is a 74-year-old female with a past medical history significant for ovarian cancer that has been diagnosed 13 years ago and has been on multiple treatment also with a history of bilateral hydronephrosis requiring ureteral stent placement earlier exchange every 3 months patient did have right chest wall Mediport and has been on Avastin every 3 weeks with the last was on 10/31/2024, presenting to the hospital for evaluation of generalized weakness that has been progressively getting worse over the last week without having any energy. Because of generalized bodyaches did have some nausea but no vomiting we decrease oral intake patient did not recall any high-grade fever on presentation to the hospital she did have low-grade fever of 99.4 degrees Fahrenheit, patient was nontachycardic hypotensive or hypoxic and no need for supplemental oxygen patient did have a white count of 5.6 creatinine is 1.35 liver isms are elevated did have a significantly positive UA influenza RSV COVID testing has been negative patient did have a chest x-ray negative for acute cardiopulmonary disease process abdominal pelvis CT did shows distended gallbladder with biliary stent identified terminating within the duodenum and 2 stents terminating within the small bowel there was no evidence of any hydronephrosis, patient did have indeterminate right lower quadrant soft tissue mass invading the cecum concerning for possible malignancy and nonspecific bulky appearance of the pancreatic head patient has been treated with the cefepime infectious disease was consulted for further management of antibiotic therapy Review of Systems Positive point and negatives has been mentioned in the HPI, complete review of systems was performed and all other systems are negative Past Medical History Past Medical History: Atrial Fibrillation, Cancer Additional Past Medical History / Comment(s): Billiary stents, Ovarian cancer current chemo History of Any Multi-Drug Resistant Organisms: None Reported Past Surgical History: No Surgical Hx Reported, Bowel Resection, Hysterectomy Past Anesthesia/Blood Transfusion Reactions: No Reported Reaction Smoking Status: Never smoker Past Alcohol Use History: None Reported Past Drug Use History: None Reported Medications and Allergies Home Medications Medication Instructions Recorded Confirmed Type Cholecalciferol (Vitamin D3) 50 mcg PO DAILY 01/12/24 11/09/24 History [Vitamin D3 (50 Mcg = 2000 Iu)] Pantoprazole Sodium [Protonix] 40 mg PO DAILY 01/12/24 11/09/24 History Pyridoxine HCl (Vitamin B6) 100 mg PO DAILY 01/12/24 11/09/24 History [Vitamin B-6] amLODIPine [Norvasc] 10 mg PO DAILY 01/12/24 11/09/24 History Ascorbic Acid [Vitamin C] 1,000 mg PO DAILY 11/09/24 11/09/24 History Cyanocobalamin (Vitamin B-12) 1,000 mcg PO DAILY 11/09/24 11/09/24 History [Vitamin B-12] Metoprolol Tartrate [Lopressor] 50 mg PO BID 11/09/24 11/09/24 History Acetaminophen Tab [Tylenol] 650 mg PO Q6HR PRN tab 11/13/24 Rx Amiodarone [Cordarone] 200 mg PO BID #60 tab 11/13/24 Rx cefuroxime axetiL [Ceftin] 500 mg PO BID 7 Days #14 tab 11/13/24 Rx Allergies Allergy/AdvReac Type Severity Reaction Status Date / Time No Known Allergies Allergy Verified 11/09/24 15:48 Physical Exam Vitals: Vital Signs Temp Pulse Resp BP Pulse Ox 11/10/24 13:31 98 F 81 18 119/77 98 11/10/24 07:23 98.4 F 86 17 120/73 97 11/10/24 01:10 98.4 F 88 16 126/71 95 11/09/24 20:00 16 11/09/24 19:24 99.3 F 91 16 125/74 95 11/09/24 17:32 98.4 F 84 16 143/69 97 Intake and Output 11/10/24 11/10/24 11/10/24 06:59 14:59 22:59 Other: # Voids 2 Weight 64.41 kg GENERAL DESCRIPTION: Elderly female up in bed, no distress. No tachypnea or accessory muscle of respiration use. HEENT: Shows Pallor , no scleral icterus. Oral mucous membrane is dry. No pharyngeal erythema or thrush NECK: Trachea central, no thyromegaly. LUNGS: Unlabored breathing. Clear to auscultation anteriorly. No wheeze or crackle. HEART: S1, S2, regular rate and rhythm. No loud murmur ABDOMEN: Soft, mild distention but no significant tenderness EXTREMITIES: No edema of feet. SKIN: No rash, no masses palpable. NEUROLOGICAL: The patient is awake, alert, oriented x3, mood and affect normal. Results CBC & Chem 7: 11/13/24 06:01 11/13/24 06:01 Assessment and Plan (1) Cholangitis Status: Acute Code(s): K83.09 - OTHER CHOLANGITIS SNOMED Code(s): 43488574 (2) UTI (urinary tract infection) Status: Acute Priority: High Code(s): N39.0 - URINARY TRACT INFECTION, SITE NOT SPECIFIED SNOMED Code(s): 43098585 Plan: 1patient presented to the hospital with generalized weakness not feeling well in this patient who did have a history of ovarian cancer on chemotherapy and also with a history of biliary stent with abnormal CT concerning for distended gallbladder elevated liver enzyme possible consideration for cholangitis likely from enteric gram-negative pathogen patient did have a positive UA and did have dark concentrated urine but did not mention any burning or frequency subsequently discomfort possible component of cystitis not entirely excluded 2-patient to continue with the cefepime while waiting for the culture to finalize Question concern answered We will follow on clinical condition and cultures to further adjust medication if needed Thank you for this consultation we will follow the patient along with you Dictation was produced using [email or web address] dictation software. please excuse any grammatical, word or spelling errors. Time with Patient: Greater than 30
[2024-11-11 08:55] LABS: HCT 16.1 % (37.2-46.3); HGB 5.4 g/dL (12.0-15.0); Immature Platelet Fraction 11.8 % (1.1-6.1); MCH 43.2 pg (27.0-32.0); MCHC 33.5 g/dL (32.0-37.0); MCV 128.8 FL (80.0-97.0); NRBC Per 100 WBC 0.03 X 10*3/uL (0.00-0.01); Platelet Count 21 X 10*3/uL (140-440); RBC 1.25 X 10*6/uL (4.10-5.20); RDW 19.5 % (11.5-14.5); WBC 5.07 X 10*3/uL (4.50-10.00)
[2024-11-11 09:33] LABS: Anisocytosis Slight; HCT 26.4 % (34.0-46.0); Hypochromasia Moderate; MCHC 32.5 g/dL (31.0-37.0); MCV 130.8 fL (80.0-100.0); Macrocytosis Marked; Mean Platelet Volume 7.7; RBC 2.02 m/uL (3.80-5.40); WBC 4.7 k/uL (3.8-10.6)
[2024-11-11 09:53] LABS: MCH 42.5 pg (25.0-35.0)
[2024-11-11 09:55] LABS: HGB 8.6 gm/dL (11.4-16.0)
[2024-11-11 10:15] LABS: Platelet Count 24 k/uL (150-450)
[2024-11-11 10:18] LABS: Band Neutrophils % 1 %; Eosinophils # (M) 0.42 k/uL (0-0.7); Lymphocytes # (M) 0.99 k/uL (1.0-4.8); Monocytes # (M) 0.61 k/uL (0-1.0); Myelocytes # (M) 0.14 k/uL (0); Myelocytes % 3 %; Neutrophils % (M) 53 %; Nucleated Red Blood Cells 0 /100 WBC (0-0); Total Cells Counted 100
[2024-11-11 10:22] LABS: RBC Fragments Present; Tear Drop Cells Present
[2024-11-11 10:46] LABS: Band Neutrophils % 9 %; Basophils # (M) 0.05 X 10*3/uL (0.00-0.10); Lymphocytes # (M) 1.27 X 10*3/uL (0.90-5.00); Macrocytosis (M) 3+ (None Seen); Monocytes # (M) 0.46 X 10*3/uL (0.20-1.00); Neutrophils # (M) 3.19 X 10*3/uL (1.80-7.70); Neutrophils % (M) 54 %
[2024-11-11] MEDS: METOPROLOL TARTRATE 25 MG TAB PO STA (11:48)
[2024-11-11 12:07] LABS: ALT 46 U/L (8-44); AST 61 U/L (13-35); Albumin 2.8 g/dL (3.8-4.9); Albumin/Globulin Ratio 0.88 Ratio (1.60-3.17); Alkaline Phosphatase 356 U/L (41-126); BUN/Creat Ratio 15.73 Ratio (12.00-20.00); Blood Urea Nitrogen 17.3 mg/dL (9.0-27.0); Calcium 8.5 mg/dL (8.7-10.3); Carbon Dioxide 20.6 mmol/L (21.6-31.8); Chloride 105 mmol/L (96-109); Globulin 3.2 g/dL (1.6-3.3); Glucose 104 mg/dL (70-110); Potassium 3.5 mmol/L (3.5-5.5); Sodium 136 mmol/L (135-145)
--- NOTE | 2024-11-11 13:53 | P.CRDCN ---
History of Present Illness History of present illness: HISTORY OF PRESENT ILLNESS: This is a 74-year-old female with a past medical history significant for ovarian cancer on maintenance therapy, atrial fibrillation, hypertension, and GERD. Toro nelson follows with Dr. Martinez in [place]. We have been asked to see the patient in consultation for afib with RVR. Patient examined at the bedside. Patient presented to hospital with a chief complaint of feeling unwell. Patient was found to have a UTI. Patient went into afib with RVR this afternoon. Patient currently denies any palpitations. She remains in atrial fibrillation with a heart rate of 145 at the time of examination. She denies any chest pain or shortness of breath. Blood pressure in the low 100s. She states the last time she had an episode of atrial fibrillation was about a year ago when she was dehydrated and had issues with her blood counts. Patient does report she had an echocardiogram performed at her primary cardiology office last month. She denies any known history of CAD. She is a nonsmoker. DIAGNOSTICS: - EKG reveals atrial fibrillation with RVR - Chest xray no significant abnormality seen. Negative for acute process. - Laboratory data: WBC 4.7. Hemoglobin 8.6. Platelet count 24. Sodium 136. Potassium 3.5. BUN 17. Creatinine 1.1. - Current home cardiac medications include Eliquis 2.5 mg twice a day, amlodipine 10 mg daily, metoprolol titrate 50 mg twice a day - No previous echocardiogram, stress test, or cardiac catheterization available in EMR for review REVIEW OF SYSTEMS: At the time of my exam: CONSTITUTIONAL: Denies fever or chills. HEENT: Denies blurred vision, vision changes, or eye pain. Denies hemoptysis CARDIOVASCULAR: Denies chest pain. Denies orthopnea. Denies PND. Denies palpitations RESPIRATORY: Denies shortness of breath. GASTROINTESTINAL: Denies abdominal pain. Denies nausea or vomiting. HEMATOLOGIC: Denies bleeding disorders. GENITOURINARY: Denies any blood in urine. SKIN: Denies pruitis. Denies rash. PHYSICAL EXAM: VITAL SIGNS: Reviewed. GENERAL: Well-developed in no acute distress. HEENT: Head is normocephalic. Pupils are equal, round. Sclerae anicteric. Mucous membranes of the mouth are moist. Neck supple. No JVD or thyromegaly LUNGS: Respirations even and unlabored. Lungs essentially clear to auscultation bilaterally. HEART: Tachycardic. Irregular rate and rhythm. S1 and S2 heard. ABDOMEN: Soft. Nondistended. Nontender. EXTREMITIES: Normal range of motion. No clubbing or cyanosis. Peripheral pulses intact. No lower extremity edema NEUROLOGIC: Awake and alert. Oriented x 3. ASSESSMENT: Urinary tract infection Paroxysmal atrial fibrillation with RVR Bicytopenia with anemia and thrombocytopenia History of ovarian cancer on maintenance therapy with Avastin Hypertension GERD PLAN: Obtain records from patient's primary rubber goods inspector, Dr. Martinez, including echo performed last month Discontinue Eliquis secondary to thrombocytopenia Discontinue amlodipine secondary to SBP in the low 100s Continue current dose of metoprolol tartrate 50 mg twice a day Begin IV amiodarone bolus and drip per protocol Continue telemetry monitoring Patient to be transferred to [facility]. with telemetry monitoring Further recommendations pending patient course Nurse practitioner note has been reviewed by physician. Signing provider agrees with the documented findings, assessment, and plan of care documented by CENTRAL OFFICE OPERATOR SUPERVISOR as a scribe. Past Medical History Past Medical History: Atrial Fibrillation, Cancer Additional Past Medical History / Comment(s): Billiary stents, Ovarian cancer current chemo History of Any Multi-Drug Resistant Organisms: None Reported Past Surgical History: No Surgical Hx Reported, Bowel Resection, Hysterectomy Past Anesthesia/Blood Transfusion Reactions: No Reported Reaction Smoking Status: Never smoker Past Alcohol Use History: None Reported Past Drug Use History: None Reported Medications and Allergies Home Medications Medication Instructions Recorded Confirmed Type Cholecalciferol (Vitamin D3) 50 mcg PO DAILY 01/12/24 11/09/24 History [Vitamin D3 (50 Mcg = 2000 Iu)] Pantoprazole Sodium [Protonix] 40 mg PO DAILY 01/12/24 11/09/24 History Pyridoxine HCl (Vitamin B6) 100 mg PO DAILY 01/12/24 11/09/24 History [Vitamin B-6] amLODIPine [Norvasc] 10 mg PO DAILY 01/12/24 11/09/24 History Apixaban [Eliquis] 2.5 mg PO BID 11/09/24 11/09/24 History Ascorbic Acid [Vitamin C] 1,000 mg PO DAILY 11/09/24 11/09/24 History Cyanocobalamin (Vitamin B-12) 1,000 mcg PO DAILY 11/09/24 11/09/24 History [Vitamin B-12] Metoprolol Tartrate [Lopressor] 50 mg PO BID 11/09/24 11/09/24 History Allergies Allergy/AdvReac Type Severity Reaction Status Date / Time No Known Allergies Allergy Verified 11/09/24 15:48 Physical Exam Vitals: Vital Signs Temp Pulse Resp BP Pulse Ox 11/11/24 13:07 141 H 11/11/24 13:00 160 H 11/11/24 12:08 98.5 F 112 H 16 109/77 95 11/11/24 07:06 98.8 F 117 H 16 103/69 98 11/11/24 01:09 97.6 F 70 16 116/72 98 11/10/24 20:00 16 11/10/24 19:26 98.3 F 91 16 125/75 95 Intake and Output 11/10/24 11/11/24 11/11/24 22:59 06:59 14:59 Other: Voiding Method Toilet # Voids 2 1 Weight 64.41 kg Results 11/11/24 09:11 11/11/24 04:30 Cardiac Enzymes 11/11/24 Range/Units 04:30 AST 61 H (13-35) U/L CBC 11/11/24 11/11/24 Range/Units 04:30 09:11 WBC 5.07 4.7 (4.50-10.00) X 10*3/uL RBC 1.25 L 2.02 L (4.10-5.20) X 10*6/uL Hgb 5.4 A* 8.6 L (12.0-15.0) g/dL Hct 16.1 A* 26.4 L (37.2-46.3) % Plt Count 21 A* 24 L (140-440) X 10*3/uL Comprehensive Metabolic Panel 11/11/24 Range/Units 04:30 Sodium 136 (135-145) mmol/L Potassium 3.5 (3.5-5.5) mmol/L Chloride 105 (96-109) mmol/L Carbon Dioxide 20.6 L (21.6-31.8) mmol/L BUN 17.3 (9.0-27.0) mg/dL Creatinine 1.1 (0.6-1.5) mg/dL Glucose 104 (70-110) mg/dL Calcium 8.5 L (8.7-10.3) mg/dL AST 61 H (13-35) U/L ALT 46 H (8-44) U/L Alkaline Phosphatase 356 H (41-126) U/L Total Protein 6.0 L (6.2-8.2) g/dL Albumin 2.8 L (3.8-4.9) g/dL Current Medications Generic Name Dose Route Start Last Admin Trade Name Freq PRN Reason Stop Dose Admin Acetaminophen 650 mg 11/09/24 15:00 Acetaminophen Tab 325 Mg Tab PO Q6HR PRN Mild Pain or Fever > 100.5 Hydrocodone Bitart/Acetaminophen 1 each 11/09/24 15:00 11/10/24 18:40 Hydrocodone/Apap 5-325mg 1 Each Tab PO 1 each Q4HR PRN Administration Moderate Pain (Scale 4 to 6) Apixaban 2.5 mg 11/09/24 21:00 11/11/24 08:38 Apixaban 2.5 Mg Tablet PO 2.5 mg BID NAV Administration Protocol Ascorbic Acid 1,000 mg 11/10/24 09:00 11/11/24 08:38 Ascorbic Acid 500 Mg Tab PO 1,000 mg DAILY NAV Administration Cholecalciferol 50 mcg 11/10/24 09:00 11/11/24 08:38 Cholecalciferol 25 Mcg (1000 Iu) Tablet PO 50 mcg DAILY NAV Administration Cyanocobalamin 1,000 mcg 11/10/24 09:00 11/11/24 08:38 Cyanocobalamin 500 Mcg Tab PO 1,000 mcg DAILY NAV Administration Docusate Sodium 100 mg 11/10/24 14:40 11/11/24 01:43 Docusate 100 Mg Cap PO 100 mg BID PRN Administration Constipation Sodium Chloride 1,000 mls @ 75 mls/hr 11/09/24 15:00 11/11/24 08:38 Saline 0.9% IV 75 mls/hr .[id number] NAV Administration Cefepime HCl 2 gm/ Sodium 100 mls @ 25 mls/hr 11/10/24 15:09 11/11/24 09:55 Chloride IVPB 25 mls/hr Q8HR NAV Administration Protocol Amiodarone HCl 450 mg/ 250 mls @ 16.667 mls/hr 11/11/24 19:45 Dextrose/Water IV 11/12/24 13:44 .Q15H NAV Protocol 0.5 MG/MIN Amiodarone HCl 360 mg/ 200 mls @ 33.333 mls/hr 11/11/24 13:45 Dextrose/Water IV 11/11/24 19:44 .Q6H ONE Protocol 1 MG/MIN Amiodarone HCl 150 mg/ 103 mls @ 618 mls/hr 11/11/24 13:45 Dextrose/Water IV 11/11/24 13:54 .Q10M ONE Protocol Metoprolol Tartrate 50 mg 11/09/24 21:00 11/11/24 05:23 Metoprolol Tartrate 50 Mg Tab PO 50 mg BID NAV Administration Morphine Sulfate 4 mg 11/09/24 15:00 Morphine Sulfate 4 Mg/Ml Syringe IV Q4HR PRN Severe Pain (Scale 7 to 10) Naloxone HCl 0.2 mg 11/09/24 15:00 Naloxone 0.4 Mg/Ml 1 Ml Vial IV Q2M PRN Opioid Reversal Ondansetron HCl 4 mg 11/09/24 15:00 Ondansetron 4 Mg/2 Ml Vial IVP Q8HR PRN Nausea And Vomiting Pantoprazole Sodium 40 mg 11/10/24 09:00 11/11/24 08:38 Pantoprazole 40 Mg/10 Ml Vial IV 40 mg DAILY NAV Administration Pyridoxine HCl 100 mg 11/10/24 09:00 11/11/24 08:38 Pyridoxine 50 Mg Tab PO 100 mg DAILY NAV Administration Intake and Output 11/10/24 11/11/24 11/11/24 22:59 06:59 14:59 Other: Voiding Method Toilet # Voids 2 1 Weight 64.41 kg 11/11/24 09:11 11/11/24 04:30
--- NOTE | 2024-11-11 14:36 | P.PN ---
Subjective Progress Note Date: 11/11/24 Principal diagnosis: Reason for follow-up is UTI/cholangitis Patient is a 74-year-old female with a past medical history significant for ovarian cancer that has been diagnosed 13 years ago and has been on multiple treatment, patient did have right chest wall Mediport and has been on Avastin last dose on 10/31/2024 presented to hospital for evaluation of generalized weakness did have low-grade fever patient said abdominal pelvis distended gallbladder and also have a positive UA. On today's evaluation that is 11/11/2024, Patient is afebrile this morning patient denies having any chest pain shortness of breath or cough, the patient is currently on room air, patient lower abdominal pain has resolved no diarrhea no nausea no vomiting. Patient white count is 4.7 creatinine is 1.1 HSM improvement of the liver enzymes urine is growing gram-negative blood cultures are pending Objective - Vital Signs Vital signs: Vital Signs Temp 98.5 F 11/11/24 12:08 Pulse 141 H 11/11/24 13:07 Resp 16 11/11/24 12:08 BP 109/77 11/11/24 12:08 Pulse Ox 95 11/11/24 12:08 FiO2 Intake & Output 11/10/24 11/11/24 11/11/24 18:59 06:59 18:59 Weight 64.41 kg Other: Voiding Method Toilet # Voids 2 1 - Exam GENERAL DESCRIPTION: An elderly female lying in bed in no distress RESPIRATORY SYSTEM: Unlabored breathing , decreased breath sounds at bases HEART: S1 S2 regular rate and rhythm , ABDOMEN: Soft , no tenderness EXTREMITIES: No edema feet - Labs CBC & Chem 7: 11/11/24 09:11 11/11/24 04:30 Labs: Abnormal Lab Results - Last 24 Hours (Table) 11/11/24 11/11/24 11/11/24 Range/Units 04:30 04:30 09:11 RBC 1.25 L 2.02 L (4.10-5.20) X 10*6/uL Hgb 5.4 A* 8.6 L (12.0-15.0) g/dL Hct 16.1 A* 26.4 L (37.2-46.3) % MCV 128.8 H 130.8 H (80.0-97.0) FL MCH 43.2 H 42.5 H (27.0-32.0) pg RDW 19.5 H 19.0 H (11.5-14.5) % Plt Count 21 A* 24 L (140-440) X 10*3/uL Lymphocytes # (Manual) 0.99 L (1.0-4.8) k/uL Myelocytes # (Manual) 0.14 H (0) k/uL NRBC/100 WBC Diff 0.03 H (0.00-0.01) X 10*3/uL Immature Plt Fraction 11.8 H (1.1-6.1) % Macrocytosis Marked A Macrocytosis (manual) 3+ A (None Seen) Carbon Dioxide 20.6 L (21.6-31.8) mmol/L Est GFR (CKD-EPI) 52 L (>=60) Calcium 8.5 L (8.7-10.3) mg/dL Total Bilirubin 2.0 H (0.3-1.2) mg/dL AST 61 H (13-35) U/L ALT 46 H (8-44) U/L Alkaline Phosphatase 356 H (41-126) U/L Total Protein 6.0 L (6.2-8.2) g/dL Albumin 2.8 L (3.8-4.9) g/dL Albumin/Globulin Ratio 0.88 L (1.60-3.17) Ratio Microbiology - Last 24 Hours (Table) 11/09/24 15:20 Blood Culture - Preliminary Blood 11/09/24 13:50 Urine Culture - Preliminary Urine,Clean Catch Gram Neg Bacilli Assessment and Plan (1) Cholangitis Current Visit: Yes Status: Acute Code(s): K83.09 - OTHER CHOLANGITIS SNOMED Code(s): 15510845 (2) UTI (urinary tract infection) Current Visit: Yes Status: Acute Priority: High Code(s): N39.0 - URINARY TRACT INFECTION, SITE NOT SPECIFIED SNOMED Code(s): 82456840 Plan: 1patient presented to the hospital with generalized weakness not feeling well in this patient who did have a history of ovarian cancer on chemotherapy and also with a history of biliary stent with abnormal CT concerning for distended g allbladder elevated liver enzyme possible consideration for cholangitis likely from enteric gram-negative pathogen patient did have a positive UA and did have dark concentrated urine but did not mention any burning or frequency did have suprapubic discomfort possible component of cystitis not entirely excluded 2-patient mention improvement in the suprapubic discomfort urine is currently growing gram-negative blood cultures pending patient will be treated with the cefepime while waiting for the culture to finalize Question concern answered Dictation was produced using [employer] dictation software. please excuse any grammatical, word or spelling errors. Time with Patient: Less than 30
[2024-11-11] MEDS: DEXTROSE 5% IN WATER 100 ML with AMIODARONE 150 MG IV ONE (15:55)
[2024-11-11] MEDS: AMIODARONE 360 MG in DEXTROSE 5% IN WATER 200 ML IV ONE (16:18)
[2024-11-11] MEDS: CEFEPIME 2 GM in SODIUM CHLORIDE 0.9% 100 ML IVPB SCH (20:34)
[2024-11-11] MEDS: AMIODARONE 450 MG in DEXTROSE 5% IN WATER 250 ML IV SCH (20:36)
--- NOTE | 2024-11-12 06:10 | P.PN ---
Subjective Progress Note Date: 11/11/24 This is a very pleasant 74-year-old female who was recently admitted with fatigue and weakness along with abdominal pain and discomfort and burning with urination. Patient has significant past medical history of ovarian cancer maintained on chemotherapy with oncology following. Patient also being followed by infectious disease maintained on cefepime and urine cultures preliminary showing gram-negative bacilli awaiting finalized cultures. Patient does have history of A-fib and was noted to have elevated heart rates and cardiology on consult and will be transferring over to 3 S. to be placed on amiodarone drip for A-fib with RVR. Patient is also on Eliquis although platelets are dropping and will hold for now. Initial lab draw this morning revealed a hemoglobin of 5 although concern for error as 1 day previously hemoglobin was 9 with no active bleeding noted. Repeat hemoglobin is above 8 and will not transfuse at this time. Platelets are 24. Review of systems: Constitutional: No reports of fatigue, fever, or chills Cardiovascular: No reports of chest pain or palpitations Respiratory: No reports of shortness of breath or cough GI: No reports of nausea, no reports of vomiting, no diarrhea, not much of an appetite : No reports of dysuria or retention, reports pain in urination is improving Neurovascular: reports of generalized weakness All medications have been reviewed PHYSICAL EXAMINATION: GENERAL: The patient is alert and oriented x4, Well developed, well nourished. Elderly appearing HEENT: Pupils are round and equally reacting to light. EOMI. no scleral icterus. No conjunctival pallor. Normocephalic, atraumatic. No pharyngeal erythema. No thyromegaly. CARDIOVASCULAR: S1 and S2 muffled, irregular PULMONARY: diminished breath sounds bilaterally with no wheezing or rhonchi noted. ABDOMEN: soft. Nontender on exam. non-distended, normoactive bowel sounds. No palpable organomegaly. MUSCULOSKELETAL: No joint swelling or deformity. EXTREMITIES: No cyanosis, clubbing, or pedal edema. NEUROLOGICAL: Gross neurological examination did not reveal any focal deficits. SKIN: No rashes. Assessment: Generalized weakness and fatigue, possibly secondary to urinary tract infection Acute urinary tract infection, present on admission with possible sepsis. P reliminary culture showing gram-negative bacilli Ovarian cancer, on chemotherapy Elevated LFTs Mild acute renal failure, improving Atrial fibrillation with RVR being transition to amiodarone drip History of biliary stents GI prophylaxis DVT prophylaxis Full code Plan: Recommend to continue with current medications and management with infectious disease and oncology following. Cardiology consulted as patient's heart rates were into the 120s/140s showing A-fib RVR. Patient does take Eliquis along with metoprolol although platelets are low at 24 and will hold Eliquis for now. Cardiology recommending transfer to S and being placed on amiodarone drip. Initial hemoglobin this morning was 5 and would have been a 4 g drop from 1 day prior, repeat showing hemoglobin of 8.6 with no active bleeding noted. Recommend follow-up labs and also monitor platelets closely. Transfuse hemoglobin if 7 or less and platelets if 10 or less Patient is maintained on cefepime with infectious disease following currently awaiting cultures preliminary showing gram-negative bacilli. Due to multiple complex medical issues, overall prognosis is guarded The impression and plan of care has been dictated by Emelia Mukherjee, nurse practitioner as directed. Dr. Leo MD I have performed a history and examination and MDM of this patient, discussed the same with the dictator, and agree with the dictator's assessment and plan as written ,documented as a scribe. Based on total visit time, I have performed more than 50% of the visit. Any additional findings or plans will be noted. Objective - Vital Signs Vital signs: Vital Signs Temp 97.1 F L 11/11/24 19:30 Pulse 58 L 11/12/24 04:00 Resp 14 11/12/24 04:00 BP 110/67 11/12/24 04:00 Pulse Ox 96 11/12/24 04:00 FiO2 Intake & Output 11/11/24 11/11/24 11/12/24 06:59 18:59 06:59 Weight 58 kg Other: Voiding Method Toilet Toilet # Voids 1 - Labs CBC & Chem 7: 11/11/24 09:11 11/11/24 04:30 Labs: Abnormal Lab Results - Last 24 Hours (Table) 11/11/24 11/11/24 11/11/24 Range/Units 04:30 04:30 09:11 RBC 1.25 L 2.02 L (4.10-5.20) X 10*6/uL Hgb 5.4 A* 8.6 L (12.0-15.0) g/dL Hct 16.1 A* 26.4 L (37.2-46.3) % MCV 128.8 H 130.8 H (80.0-97.0) FL MCH 43.2 H 42.5 H (27.0-32.0) pg RDW 19.5 H 19.0 H (11.5-14.5) % Plt Count 21 A* 24 L (140-440) X 10*3/uL Lymphocytes # (Manual) 0.99 L (1.0-4.8) k/uL Myelocytes # (Manual) 0.14 H (0) k/uL NRBC/100 WBC Diff 0.03 H (0.00-0.01) X 10*3/uL Immature Plt Fraction 11.8 H (1.1-6.1) % Macrocytosis Marked A Macrocytosis (manual) 3+ A (None Seen) Carbon Dioxide 20.6 L (21.6-31.8) mmol/L Est GFR (CKD-EPI) 52 L (>=60) Calcium 8.5 L (8.7-10.3) mg/dL Total Bilirubin 2.0 H (0.3-1.2) mg/dL AST 61 H (13-35) U/L ALT 46 H (8-44) U/L Alkaline Phosphatase 356 H (41-126) U/L Total Protein 6.0 L (6.2-8.2) g/dL Albumin 2.8 L (3.8-4.9) g/dL Albumin/Globulin Ratio 0.88 L (1.60-3.17) Ratio Microbiology - Last 24 Hours (Table) 11/09/24 13:50 Urine Culture - Final Urine,Clean Catch Klebsiella oxytoca 11/09/24 15:20 Blood Culture - Preliminary Blood
[2024-11-12 10:15] LABS: Anisocytosis Slight; HCT 26.7 % (34.0-46.0); HGB 8.7 gm/dL (11.4-16.0); Hypochromasia Moderate; MCHC 32.5 g/dL (31.0-37.0); MCV 131.7 fL (80.0-100.0); Macrocytosis Marked; Mean Platelet Volume 11.6; RBC 2.02 m/uL (3.80-5.40); RDW 18.9 % (11.5-15.5); WBC 3.9 k/uL (3.8-10.6)
[2024-11-12 10:34] LABS: MCH 42.9 pg (25.0-35.0)
[2024-11-12 10:35] LABS: Platelet Count 25 k/uL (150-450)
--- NOTE | 2024-11-12 10:35 | CDI ---
Documentation Clarification Form Date: 11/12/2024 10:07:22 AM From: Xochilt Chávez RN CCDS Phone: [phone] Admit Date: 11/09/2024 02:52:00 PM Patient Name: Miranda Pena Visit Number: [id number] Discharge Date: ATTENTION: The Clinical Documentation Specialists (CDI) and [facility] Coding Staff appreciate your assistance in clarifying documentation. Please respond to the clarification below the line at the bottom and electronically sign. The CDI & [facility] Coding staff will review the response and follow-up if needed. Please note: Queries are made part of the Legal Health Record. If you have any questions, please contact the author of this message via ITS. Emelia Mukherjee NP Sepsis is documented 11/10, HP which may lack sufficient clinical evidence/support in the medical record. Additional clarification is requested. History/Risk Factors: 74 year old female presents to the ED for generalized weakness. Medical history: Ovarian cancer receiving Avastin treatments and Atrial Fibrillation. 11/10 HP Clinical Indicators: 11/09 VSS: 124/75 HR 9, RR 20; Temp 99.4 F Oral; SpO2 97% ra; bmi 21.9kg 11/09,LABS: Wbc 5.6; Netrophils manual 3.19; Plasma Lactic Acid [place]varado 0.9 11/09 Urine Culture: Klebsiella oxytoca 11/09 CXR: No significant abnormality seen. Treatment: 11/09 11/10 Ceftriaxone IVPB Daily; 11/10 11/11 Cefepime IVPB Q8H; 11/11 Cefepime IVPB Q12H Fluids: 11/09 0.9ns 1L IV Bolus ; 11/09 0.9ns 500cc IV Bolus; 11/09 0.9ns 75cc/hr IV After work up and study, please clarify which diagnosis is most appropriate? [x ] Sepsis ruled out [ ] Sepsis treated prophylactically [ ] Sepsis is a valid diagnosis as evidence by the following: (Please add rationale): [ ] Other, please specify [ ] Unable to determine SIRS Criteria: 2 or more of the following may indicate SIRS Temperature < 96.8F (36C) or > 101.0F (38.3C) Heart Rate > 90 bpm Respiratory Rate > 20 breaths/min or PaCO2 < 32 mmHg White Blood Cell Count > 12,000 or < 4,000 cells/mm3 or > 10% bands (Template Last Reviewed: October 2023) MTDD
[2024-11-12 11:00] LABS: Basophils # (M) 0.04 k/uL (0-0.2); Eosinophils # (M) 0.12 k/uL (0-0.7); Lymphocytes # (M) 1.79 k/uL (1.0-4.8); Metamyelocytes # (M) 0.04 k/uL (0); Metamyelocytes % 1 %; Monocytes # (M) 0.16 k/uL (0-1.0); Neutrophils # (M) 1.83 k/uL (1.3-7.7); Neutrophils % (M) 47 %; Nucleated Red Blood Cells 0 /100 WBC (0-0); Total Cells Counted 200
[2024-11-12 11:14] LABS: Tear Drop Cells Present
[2024-11-12 11:23] LABS: African American GFR (CKD) 55 (>60 ml/min/1.73 sqM); Anion Gap 12 mmol/L; Blood Urea Nitrogen 16 mg/dL (7-17); Carbon Dioxide 17 mmol/L (22-30); Chloride 106 mmol/L (98-107); Glucose 126 mg/dL (74-99); Non-African American GFR(CKD) 47 (>60 ml/min/1.73 sqM); Potassium 3.3 mmol/L (3.5-5.1); Sodium 135 mmol/L (137-145)
[2024-11-12] MEDS: AMIODARONE 200 MG TAB PO SCH (11:43)
--- NOTE | 2024-11-12 13:35 | P.PN ---
Subjective Progress Note Date: 11/12/24 HISTORY OF PRESENT ILLNESS: This is a 74-year-old female with a past medical history significant for ovarian cancer on maintenance therapy, atrial fibrillation, hypertension, and GERD. Patient follows with Dr. Martinez in [place]. We have been asked to see the patient in consultation for afib with RVR. Patient examined at the bedside. Patient presented to hospital with a chief complaint of feeling unwell. Patient was found to have a UTI. Patient went into afib with RVR this afternoon. Patient currently denies any palpitations. She remains in atrial fibrillation with a heart rate of 145 at the time of examination. She denies any chest pain or shortness of breath. Blood pressure in the low 100s. She states the last time she had an episode of atrial fibrillation was about a year ago when she was dehydrated and had issues with her blood counts. Patient does report she had an echocardiogram performed at her primary cardiology office last month. She denies any known history of CAD. She is a nonsmoker. DIAGNOSTICS: - EKG reveals atrial fibrillation with RVR - Chest xray no significant abnormality seen. Negative for acute process. - Laboratory data: WBC 4.7. Hemoglobin 8.6. Platelet count 24. Sodium 136. Potassium 3.5. BUN 17. Creatinine 1.1. - Current home cardiac medications include Eliquis 2.5 mg twice a day, amlodipine 10 mg daily, metoprolol titrate 50 mg twice a day - No previous echocardiogram, stress test, or cardiac catheterization available in EMR for review 11/12 Patient seen and examined on the cardiac stepdown unit. Patient has been on IV amiodarone drip per protocol. She has converted to a sinus rhythm. Blood pressure 127/77, heart rate 79, pulse ox 97% on room air. Repeat blood work reveals hemoglobin 8.7, platelet count is 25. Sodium 135, potassium 3.3, BUN 16 creatinine 1.13. PHYSICAL EXAM: VITAL SIGNS: Reviewed. GENERAL: Well-developed in no acute distress. HEENT: Head is normocephalic. Pupils are equal, round. Sclerae anicteric. Mucous membranes of the mouth are moist. Neck supple. No JVD or thyromegaly LUNGS: Respirations even and unlabored. Lungs essentially clear to auscultation bilaterally. HEART: Tachycardic. Irregular rate and rhythm. S1 and S2 heard. ABDOMEN: Soft. Nondistended. Nontender. EXTREMITIES: Normal range of motion. No clubbing or cyanosis. Peripheral pulses intact. No lower extremity edema NEUROLOGIC: Awake and alert. Oriented x 3. ASSESSMENT: Urinary tract infection Paroxysmal atrial fibrillation with RVR, converted to sinus rhythm Bicytopenia with anemia and thrombocytopenia History of ovarian cancer on maintenance therapy with Avastin Hypertension GERD PLAN: Obtain records from patient's primary shape brick molder, Dr. Martinez, including echo performed last month Discontinue Eliquis secondary to thrombocytopenia consider resuming once platelet count reaches 50 Discontinue amlodipine secondary to SBP in the low 100s Continue current dose of metoprolol tartrate 50 mg twice a day Discontinue IV amiodarone and start oral amiodarone 200 mg twice daily for 2 weeks and then 200 mg daily Further recommendations pending patient course Nurse practitioner note has been reviewed by physician. Signing provider agrees with the documented findings, assessment, and plan of care documented by TRANSPORTATION MODELER as a scribe. Objective - Vital Signs Vital signs: Vital Signs Temp 97.1 F L 11/11/24 19:30 Pulse 58 L 11/12/24 04:00 Resp 14 11/12/24 04:00 BP 110/67 11/12/24 04:00 Pulse Ox 96 11/12/24 04:00 FiO2 Intake & Output 11/11/24 11/12/24 11/12/24 18:59 06:59 18:59 Intake Total 240 Balance 240 Weight 58 kg Intake: Oral 240 Other: Voiding Method Toilet - Labs CBC & Chem 7: 11/12/24 09:52 11/12/24 09:52 Labs: Abnormal Lab Results - Last 24 Hours (Table) 11/11/24 11/11/24 11/11/24 Range/Units 04:30 04:30 09:11 RBC 2.02 L (3.80-5.40) m/uL Hgb 8.6 L (11.4-16.0) gm/dL Hct 26.4 L (34.0-46.0) % MCV 130.8 H (80.0-100.0) fL MCH 42.5 H (25.0-35.0) pg RDW 19.0 H (11.5-15.5) % Plt Count 24 L (150-450) k/uL Lymphocytes # (Manual) 0.99 L (1.0-4.8) k/uL Myelocytes # (Manual) 0.14 H (0) k/uL Macrocytosis Marked A Macrocytosis (manual) 3+ A (None Seen) Carbon Dioxide 20.6 L (21.6-31.8) mmol/L Est GFR (CKD-EPI) 52 L (>=60) Calcium 8.5 L (8.7-10.3) mg/dL Total Bilirubin 2.0 H (0.3-1.2) mg/dL AST 61 H (13-35) U/L ALT 46 H (8-44) U/L Alkaline Phosphatase 356 H (41-126) U/L Total Protein 6.0 L (6.2-8.2) g/dL Albumin 2.8 L (3.8-4.9) g/dL Albumin/Globulin Ratio 0.88 L (1.60-3.17) Ratio Microbiology - Last 24 Hours (Table) 11/09/24 13:50 Urine Culture - Final Urine,Clean Catch Klebsiella oxytoca 11/09/24 15:20 Blood Culture - Preliminary Blood
[2024-11-12] MEDS: POTASSIUM CHLORIDE ER 20 MEQ TAB.ER PO STA (16:59)
--- NOTE | 2024-11-13 00:42 | P.PN ---
Subjective Progress Note Date: 11/12/24 This is a very pleasant 74-year-old female who was recently admitted with fatigue and weakness along with abdominal pain and discomfort and burning with urination. Patient has significant past medical history of ovarian cancer maintained on chemotherapy with oncology following. Patient also being followed by infectious disease maintained on cefepime and urine cultures preliminary showing gram-negative bacilli awaiting finalized cultures. Patient does have history of A-fib and was noted to have elevated heart rates and cardiology on consult and will be transferring over to 3 S. to be placed on amiodarone drip for A-fib with RVR. Patient is also on Eliquis although platelets are dropping and will hold for now. Initial lab draw this morning revealed a hemoglobin of 5 although concern for error as 1 day previously hemoglobin was 9 with no active bleeding noted. Repeat hemoglobin is above 8 and will not transfuse at this time. Platelets are 24. 11/12/2024 Patient is seen in follow-up today with multiple consultations following transfer to 3 S. this patient was with A-fib RVR. Eliquis placed on hold as platelets continue to be low although slightly improved at 25 today. Patient awaiting urine cultures with infectious disease following maintained on cefepime for now. Cultures finalizing showing Klebsiella, will discuss with infectious disease regarding medication adjustment and discharge planning. Patient is maintained on IV amiodarone and will be transition to oral amiodarone and continue metoprolol per cardiology. Follow-up on repeat labs and encouraged increase activity as tolerated. Review of systems: Constitutional: No reports of fatigue, fever, or chills Cardiovascular: No reports of chest pain or palpitations Respiratory: No reports of shortness of breath or cough GI: No reports of nausea, no reports of vomiting, no diarrhea, not much of an appetite : No reports of dysuria or retention, reports pain in urination is improving Neurovascular: reports of generalized weakness All medications have been reviewed PHYSICAL EXAMINATION: GENERAL: The patient is alert and oriented x4, Well developed, well nourished. Elderly appearing HEENT: Pupils are round and equally reacting to light. EOMI. no scleral icterus. No conjunctival pallor. Normocephalic, atraumatic. No pharyngeal erythema. No thyromegaly. CARDIOVASCULAR: S1 and S2 muffled, irregular PULMONARY: diminished breath sounds bilaterally with no wheezing or rhonchi noted. ABDOMEN: soft. Nontender on exam. non-distended, normoactive bowel sounds. No palpable organomegaly. MUSCULOSKELETAL: No joint swelling or deformity. EXTREMITIES: No cyanosis, clubbing, or pedal edema. NEUROLOGICAL: Gross neurological examination did not reveal any focal deficits. SKIN: No rashes. Assessment: Generalized weakness and fatigue, likely secondary to urinary tract infection Acute urinary tract infection, present on admission with ruled out sepsis. Culture showing Klebsiella Ovarian cancer, on chemotherapy Elevated LFTs Mild acute renal failure, improving Thrombocytopenia Paroxysmal atrial fibrillation with RVR, continued on amiodarone drip and being transition to oral History of biliary stents GI prophylaxis DVT prophylaxis, SCDs Full code Plan: Recommend to continue with current medications and management with infectious disease and oncology following. Cardiology following as patient's heart rates were into the 120s/140s showing A- fib RVR. Patient does take Eliquis along with metoprolol although platelets remain low at 25 and will hold Eliquis for now. Patient was started on amiodarone drip and will be transition to oral per cardiology Hemoglobin 8.7 with no active bleeding noted. Recommend follow-up labs and also monitor platelets closely. Transfuse hemoglobin if 7 or less and platelets if 10 or less Patient is maintained on cefepime with infectious disease following. Culture showing Klebsiella and will discuss with infectious disease regarding discharge planning antibiotics. Patient is reporting some improvement in lower abdominal pain and reports less pain with urination Due to multiple complex medical issues, overall prognosis is guarded Possible discharge planning in the next 24 to 48 hours The impression and plan of care has been dictated by Emelia Mukherjee, nurse practitioner as directed. Dr. Leo MD I have performed a history and examination and MDM of this patient, discussed the same with the dictator, and agree with the dictator's assessment and plan as written ,documented as a scribe. Based on total visit time, I have performed more than 50% of the visit. Any additional findings or plans will be noted. Objective - Vital Signs Vital signs: Vital Signs Temp 97.7 F 11/12/24 19:36 Pulse 60 11/13/24 00:00 Resp 14 11/13/24 00:00 BP 110/66 11/13/24 00:00 Pulse Ox 98 11/13/24 00:00 FiO2 Intake & Output 11/12/24 11/12/24 11/13/24 06:59 18:59 06:59 Intake Total 720 Output Total 0 Balance 720 Weight 58 kg Intake: Oral 720 Output: Urine 0 Other: Voiding Method Toilet Toilet Toilet # Voids 3 # Bowel Movements 1 - Labs CBC & Chem 7: 11/12/24 09:52 11/12/24 09:52 Labs: Abnormal Lab Results - Last 24 Hours (Table) 11/11/24 11/12/24 11/12/24 Range/Units 04:30 09:52 09:52 RBC 2.02 L (3.80-5.40) m/uL Hgb 8.7 L (11.4-16.0) gm/dL Hct 26.7 L (34.0-46.0) % MCV 131.7 H (80.0-100.0) fL MCH 42.9 H (25.0-35.0) pg RDW 18.9 H (11.5-15.5) % Plt Count 25 L (150-450) k/uL Metamyelocytes # (Man) 0.04 H (0) k/uL Macrocytosis Marked A Sodium 135 L (137-145) mmol/L Potassium 3.3 L (3.5-5.1) mmol/L Carbon Dioxide 17 L (22-30) mmol/L Creatinine 1.13 H (0.52-1.04) mg/dL Glucose 126 H (74-99) mg/dL Magnesium 1.4 L (1.5-2.4) mg/dL Microbiology - Last 24 Hours (Table) 11/09/24 13:50 Urine Culture - Final Urine,Clean Catch Klebsiella oxytoca 11/09/24 15:20 Blood Culture - Preliminary Blood
[2024-11-13 01:46] VITALS: RESP 16
[2024-11-13 07:18] LABS: Anisocytosis Slight; HCT 24.8 % (34.0-46.0); Hypochromasia Slight; MCHC 32.3 g/dL (31.0-37.0); MCV 132.5 fL (80.0-100.0); Macrocytosis Marked; Mean Platelet Volume 8.7; RBC 1.87 m/uL (3.80-5.40); RDW 19.5 % (11.5-15.5); WBC 3.2 k/uL (3.8-10.6)
[2024-11-13 07:51] LABS: MCH 42.8 pg (25.0-35.0)
[2024-11-13 07:56] LABS: Platelet Count 18 k/uL (150-450)
[2024-11-13 07:59] VITALS: PULSE 80
--- NOTE | 2024-11-13 08:17 | P.PN ---
Subjective Progress Note Date: 11/12/24 Principal diagnosis: Reason for follow-up is UTI/cholangitis Patient is a 74-year-old female with a past medical history significant for ovarian cancer that has been diagnosed 13 years ago and has been on multiple treatment, patient did have right chest wall Mediport and has been on Avastin last dose on 10/31/2024 presented to hospital for evaluation of generalized weakness did have low-grade fever patient said abdominal pelvis distended gallbladder and also have a positive UA. On today's evaluation that is 11/12/2024,the patient denies any fever or any chills, patient is breathing comfortably on room air, the patient denies chest pain shortness of breath and no significant cough, patient denies abdominal pain, no nausea vomiting or diarrhea. Patient white count is 3.9 creat is 1.13 urine grew Klebsiella sensitive to ceftriaxone Objective - Vital Signs Vital signs: Vital Signs Temp 97.9 F 11/12/24 08:05 Pulse 79 11/12/24 08:05 Resp 16 11/12/24 08:05 BP 127/77 11/12/24 08:05 Pulse Ox 97 11/12/24 08:05 FiO2 Intake & Output 11/11/24 11/12/24 11/12/24 18:59 06:59 18:59 Intake Total 240 Output Total 0 Balance 240 Weight 58 kg Intake: Oral 240 Output: Urine 0 Other: Voiding Method Toilet Toilet # Bowel Movements 0 - Exam GENERAL DESCRIPTION: An elderly female lying in bed in no distress RESPIRATORY SYSTEM: Unlabored breathing , decreased breath sounds at bases HEART: S1 S2 regular rate and rhythm , ABDOMEN: Soft , no tenderness EXTREMITIES: No edema feet - Labs CBC & Chem 7: 11/13/24 06:01 11/12/24 09:52 Labs: Abnormal Lab Results - Last 24 Hours (Table) 11/11/24 11/12/24 11/12/24 Range/Units 04:30 09:52 09:52 RBC 2.02 L (3.80-5.40) m/uL Hgb 8.7 L (11.4-16.0) gm/dL Hct 26.7 L (34.0-46.0) % MCV 131.7 H (80.0-100.0) fL MCH 42.9 H (25.0-35.0) pg RDW 18.9 H (11.5-15.5) % Plt Count 25 L (150-450) k/uL Metamyelocytes # (Man) 0.04 H (0) k/uL Macrocytosis Marked A Sodium 135 L (137-145) mmol/L Potassium 3.3 L (3.5-5.1) mmol/L Carbon Dioxide 17 L (22-30) mmol/L Creatinine 1.13 H (0.52-1.04) mg/dL Glucose 126 H (74-99) mg/dL Magnesium 1.4 L (1.5-2.4) mg/dL Microbiology - Last 24 Hours (Table) 11/09/24 13:50 Urine Culture - Final Urine,Clean Catch Klebsiella oxytoca 11/09/24 15:20 Blood Culture - Preliminary Blood Assessment and Plan (1) Cholangitis Current Visit: Yes Status: Acute Code(s): K83.09 - OTHER CHOLANGITIS SNOMED Code(s): 81217285 (2) UTI (urinary tract infection) Current Visit: Yes Status: Acute Priority: High Code(s): N39.0 - URINARY TRACT INFECTION, SITE NOT SPECIFIED SNOMED Code(s): 70263316 Plan: 1patient presented to the hospital with generalized weakness not feeling well in this patient who did have a history of ovarian cancer on chemotherapy and also with a history of biliary stent with abnormal CT concerning for distended gallbladder elevated liver enzyme possible consideration for cholangitis likely from enteric gram-negative pathogen patient did have a positive UA and did have dark concentrated urine but did not mention any burning or frequency did have suprapubic discomfort possible component of cystitis not entirely excluded 2-patient urine is currently growing Klebsiella sensitive to ceftriaxone cefepime currently on cefepime to continue while inpatient will transition to oral antibiotic on discharge Dictation was produced using [employer] software. please excuse any grammatical, word or spelling errors. Time with Patient: Less than 30
[2024-11-13 08:21] LABS: African American GFR (CKD) 55 (>60 ml/min/1.73 sqM); Anion Gap 5 mmol/L; Blood Urea Nitrogen 15 mg/dL (7-17); Calcium 9.1 mg/dL (8.4-10.2); Carbon Dioxide 22 mmol/L (22-30); Chloride 110 mmol/L (98-107); Glucose 84 mg/dL (74-99); Non-African American GFR(CKD) 48 (>60 ml/min/1.73 sqM); Potassium 3.9 mmol/L (3.5-5.1); Sodium 137 mmol/L (137-145)
[2024-11-13 09:05] LABS: Band Neutrophils % 2 %; Basophils # (M) 0.03 k/uL (0-0.2); Eosinophils # (M) 0.19 k/uL (0-0.7); Lymphocytes # (M) 1.28 k/uL (1.0-4.8); Metamyelocytes # (M) 0.06 k/uL (0); Metamyelocytes % 2 %; Monocytes # (M) 0.45 k/uL (0-1.0); Myelocytes # (M) 0.03 k/uL (0); Myelocytes % 1 %; Neutrophils % (M) 37 %; Nucleated Red Blood Cells 0 /100 WBC (0-0); Total Cells Counted 200
[2024-11-13 09:09] LABS: Rouleaux Present; Tear Drop Cells Present
[2024-11-13 11:26] VITALS: BP 121/67; TEMP 98.5
--- NOTE | 2024-11-13 14:08 | P.PN ---
Subjective Progress Note Date: 11/13/24 HISTORY OF PRESENT ILLNESS: This is a 74-year-old female with a past medical history significant for ovarian cancer on maintenance therapy, atrial fibrillation, hypertension, and GERD. Patient follows with Dr. Martinez in [place]. We have been asked to see the patient in consultation for afib with RVR. Patient examined at the bedside. Patient presented to hospital with a chief complaint of feeling unwell. Patient was found to have a UTI. Patient went into afib with RVR this afternoon. Patient currently denies any palpitations. She remains in atrial fibrillation with a heart rate of 145 at the time of examination. She denies any chest pain or shortness of breath. Blood pressure in the low 100s. She states the last time she had an episode of atrial fibrillation was about a year ago when she was dehydrated and had issues with her blood counts. Patient does report she had an echocardiogram performed at her primary cardiology office last month. She denies any known history of CAD. She is a nonsmoker. DIAGNOSTICS: - EKG reveals atrial fibrillation with RVR - Chest xray no significant abnormality seen. Negative for acute process. - Laboratory data: WBC 4.7. Hemoglobin 8.6. Platelet count 24. Sodium 136. Potassium 3.5. BUN 17. Creatinine 1.1. - Current home cardiac medications include Eliquis 2.5 mg twice a day, amlodipine 10 mg daily, metoprolol titrate 50 mg twice a day - No previous echocardiogram, stress test, or cardiac catheterization available in EMR for review 11/12 Patient seen and examined on the cardiac stepdown unit. Patient has been on IV amiodarone drip per protocol. She has converted to a sinus rhythm. Blood pressure 127/77, heart rate 79, pulse ox 97% on room air. Repeat blood work reveals hemoglobin 8.7, platelet count is 25. Sodium 135, potassium 3.3, BUN 16 creatinine 1.13. 11/13 Patient is seen and examined. Patient remains in a sinus rhythm. Patient denies chest pain or shortness of breath. She is not on Eliquis right now due to low platelet count. Repeat blood work reveals hemoglobin 8, platelet count 18. Creatinine 1.12. Blood pressure 126/67, heart rate 72, pulse ox 100% on room air. PHYSICAL EXAM: VITAL SIGNS: Reviewed. GENERAL: Well-developed in no acute distress. HEENT: Head is normocephalic. Pupils are equal, round. Sclerae anicteric. Mucous membranes of the mouth are moist. Neck supple. No JVD or thyromegaly LUNGS: Respirations even and unlabored. Lungs essentially clear to auscultation bilaterally. HEART: Tachycardic. Irregular rate and rhythm. S1 and S2 heard. ABDOMEN: Soft. Nondistended. Nontender. EXTREMITIES: No clubbing or cyanosis. Peripheral pulses intact. No lower extremity edema NEUROLOGIC: Awake and alert. Oriented x 3. ASSESSMENT: Urinary tract infection Paroxysmal atrial fibrillation with RVR, converted to sinus rhythm Pancytopenia History of ovarian cancer on maintenance therapy with Avastin Hypertension GERD PLAN: Resume Eliquis once platelet count is 50,000 Continue current dose of metoprolol tartrate 50 mg twice a day Continue oral amiodarone 200 mg twice daily for 2 weeks and then 200 mg daily Cardiology will sign off this case and follow on an as-needed basis. Please re consult for any new concerns. Patient may follow-up with her primary paperhanger apprentice, Dr. Martinez in 2 weeks. Nurse practitioner note has been reviewed by physician. Signing provider agrees with the documented findings, assessment, and plan of care documented by VENEER LATHE OPERATOR as a scribe. Objective - Vital Signs Vital signs: Vital Signs Temp 97.7 F 11/13/24 07:56 Pulse 80 11/13/24 07:56 Resp 16 11/13/24 07:56 BP 136/85 11/13/24 07:56 Pulse Ox 99 11/13/24 07:56 FiO2 Intake & Output 11/12/24 11/13/24 11/13/24 18:59 06:59 18:59 Intake Total 720 130 Output Total 0 Balance 720 130 Weight 45.5 kg Intake: IV 10 Invasive Line 1 10 Oral 720 120 Output: Urine 0 Other: Voiding Method Toilet Toilet # Voids 3 1 # Bowel Movements 1 - Labs CBC & Chem 7: 11/13/24 06:01 11/13/24 06:01 Labs: Abnormal Lab Results - Last 24 Hours (Table) 11/11/24 11/12/24 11/12/24 Range/Units 04:30 09:52 09:52 WBC (3.8-10.6) k/uL RBC 2.02 L (3.80-5.40) m/uL Hgb 8.7 L (11.4-16.0) gm/dL Hct 26.7 L (34.0-46.0) % MCV 131.7 H (80.0-100.0) fL MCH 42.9 H (25.0-35.0) pg RDW 18.9 H (11.5-15.5) % Plt Count 25 L (150-450) k/uL Neutrophils # (Manual) (1.3-7.7) k/uL Metamyelocytes # (Man) 0.04 H (0) k/uL Myelocytes # (Manual) (0) k/uL Macrocytosis Marked A Sodium 135 L (137-145) mmol/L Potassium 3.3 L (3.5-5.1) mmol/L Chloride (98-107) mmol/L Carbon Dioxide 17 L (22-30) mmol/L Creatinine 1.13 H (0.52-1.04) mg/dL Glucose 126 H (74-99) mg/dL Magnesium 1.4 L (1.5-2.4) mg/dL 11/13/24 11/13/24 Range/Units 06:01 06:01 WBC 3.2 L (3.8-10.6) k/uL RBC 1.87 L (3.80-5.40) m/uL Hgb 8.0 L (11.4-16.0) gm/dL Hct 24.8 L (34.0-46.0) % MCV 132.5 H (80.0-100.0) fL MCH 42.8 H (25.0-35.0) pg RDW 19.5 H (11.5-15.5) % Plt Count 18 L* (150-450) k/uL Neutrophils # (Manual) 1.20 L (1.3-7.7) k/uL Metamyelocytes # (Man) 0.06 H (0) k/uL Myelocytes # (Manual) 0.03 H (0) k/uL Macrocytosis Marked A Sodium (137-145) mmol/L Potassium (3.5-5.1) mmol/L Chloride 110 H (98-107) mmol/L Carbon Dioxide (22-30) mmol/L Creatinine 1.12 H (0.52-1.04) mg/dL Glucose (74-99) mg/dL Magnesium (1.5-2.4) mg/dL Microbiology - Last 24 Hours (Table) 11/09/24 15:20 Blood Culture - Preliminary Blood 11/09/24 13:50 Urine Culture - Final Urine,Clean Catch Klebsiella oxytoca
--- NOTE | 2024-11-13 14:12 | P.PN ---
Subjective Progress Note Date: 11/13/24 Principal diagnosis: Reason for follow-up is UTI/cholangitis Patient is a 74-year-old female with a past medical history significant for ovarian cancer that has been diagnosed 13 years ago and has been on multiple treatment, patient did have right chest wall Mediport and has been on Avastin last dose on 10/31/2024 presented to hospital for evaluation of generalized weakness did have low-grade fever patient said abdominal pelvis distended gallbladder and also have a positive UA. On today's evaluation that is 11/13/2024,the patient remains to be afebrile, patient is on room air not requiring supplemental oxygen and denies any shortness of breath no chest pain or cough.Patient denies having any nausea or vomiting, complaining of some mild abdominal pain after bowel movement yesterday denies having any diarrhea. Patient white count is 3.2, creat is 1.12 urine with Klebsiella Objective - Vital Signs Vital signs: Vital Signs Temp 98.5 F 11/13/24 11:25 Pulse 80 11/13/24 11:25 Resp 16 11/13/24 11:25 BP 121/67 11/13/24 11:25 Pulse Ox 99 11/13/24 11:25 FiO2 Intake & Output 11/12/24 11/13/24 11/13/24 18:59 06:59 18:59 Intake Total 720 130 Output Total 0 Balance 720 130 Weight 45.5 kg Intake: IV 10 Invasive Line 1 10 Oral 720 120 Output: Urine 0 Other: Voiding Method Toilet Toilet # Voids 3 1 # Bowel Movements 1 - Exam GENERAL DESCRIPTION: An elderly female lying in bed in no distress RESPIRATORY SYSTEM: Unlabored breathing , decreased breath sounds at bases HEART: S1 S2 regular rate and rhythm , ABDOMEN: Soft , no tenderness EXTREMITIES: No edema feet - Labs CBC & Chem 7: 11/13/24 06:01 11/13/24 06:01 Labs: Abnormal Lab Results - Last 24 Hours (Table) 11/13/24 11/13/24 Range/Units 06:01 06:01 WBC 3.2 L (3.8-10.6) k/uL RBC 1.87 L (3.80-5.40) m/uL Hgb 8.0 L (11.4-16.0) gm/dL Hct 24.8 L (34.0-46.0) % MCV 132.5 H (80.0-100.0) fL MCH 42.8 H (25.0-35.0) pg RDW 19.5 H (11.5-15.5) % Plt Count 18 L* (150-450) k/uL Neutrophils # (Manual) 1.20 L (1.3-7.7) k/uL Metamyelocytes # (Man) 0.06 H (0) k/uL Myelocytes # (Manual) 0.03 H (0) k/uL Macrocytosis Marked A Chloride 110 H (98-107) mmol/L Creatinine 1.12 H (0.52-1.04) mg/dL Microbiology - Last 24 Hours (Table) 11/09/24 15:20 Blood Culture - Preliminary Blood Assessment and Plan (1) Cholangitis Current Visit: Yes Status: Acute Code(s): K83.09 - OTHER CHOLANGITIS SNO MED Code(s): 35654759 (2) UTI (urinary tract infection) Current Visit: Yes Status: Acute Priority: High Code(s): N39.0 - URINARY TRACT INFECTION, SITE NOT SPECIFIED SNOMED Code(s): 68058350 Plan: 1patient presented to the hospital with generalized weakness not feeling well in this patient who did have a history of ovarian cancer on chemotherapy and also with a history of biliary stent with abnormal CT concerning for distended gallbladder elevated liver enzyme possible consideration for cholangitis likely from enteric gram-negative pathogen patient did have a positive UA and did have dark concentrated urine but did not mention any burning or frequency did have suprapubic discomfort possible component of cystitis not entirely excluded 2-patient urine is currently growing Klebsiella sensitive to ceftriaxone cefepime, patient did have some clinical improvement we will continue on cefepime patient therapy with oral Ceftin discussed with SECURITY SYSTEMS INTEGRATOR for admitting team Dictation was produced using [employer] dictation software. please excuse any grammatical, word or spelling errors. Time with Patient: Less than 30
[2024-11-13 15:24] VITALS: BMI 17.2
--- NOTE | 2024-11-16 18:07 | P.DS ---
Providers Date of admission: 11/09/24 14:52 Expected date of discharge: 11/13/24 Attending physician: Nicole Bailey Consults: 11/09/24 15:00 Consult Physician Urgent Consulting Provider: Hardik Almaguer Consult Reason/Comments: Ovarian cancer patient Do you want consulting provider notified?: Yes 11/10/24 14:37 Consult Physician Urgent Consulting Provider: Colin Sequeira Consult Reason/Comments: uti Do you want consulting provider notified?: Yes 11/11/24 11:42 Consult Physician Urgent Consulting Provider: [facility] Consult Reason/Comments: AFIB Do you want consulting provider notified?: Yes Primary care physician: Kevin Walker MD Hospital Course: Final diagnosis Generalized weakness and fatigue, likely secondary to urinary tract infection Acute urinary tract infection, present on admission with ruled out sepsis. Culture showing Klebsiella Ovarian cancer, on chemotherapy Elevated LFTs Mild acute renal failure, improving Thrombocytopenia Paroxysmal atrial fibrillation with RVR, continued on amiodarone drip and being transition to oral History of biliary stents GI prophylaxis DVT prophylaxis, SCDs Full code Discharge disposition Patient is being discharged in a stable condition with guarded prognosis to home. Patient will follow-up with Dr. Walker in the outpatient setting upon discharge. Patient is to continue with oral Ceftin twice daily for 1 week and close outpatient follow-up with oncology as well as surgeon for follow-up on bone marrow biopsy as scheduled. Total time taken is greater than 35 minutes. Hospital course This is a 74-year-old female who was recently admitted with generalized weakness with lower abdominal pain found to have acute urinary tract infection with cultures growing Klebsiella. Patient also with significant past medical history of ovarian cancer currently on chemotherapy follows with Dr. Vincent outpatient. Patient having significant thrombocytopenia with history of A-fib on Eliquis having to hold Eliquis as platelets are significantly dropping and currently 18. Patient was scheduled outpatient for a bone marrow biopsy today although due to being hospitalized this has to be rescheduled. Contacted Dr. Vincent's office and made them aware and patient has also contacted surgeon who was performing bone marrow biopsy to reschedule. Recommend repeat labs in the next few days and close outpatient follow-up with oncology. Patient being followed by infectious disease maintained on antibiotics will transition to oral Ceftin twice daily for 1 week for Klebsiella urinary tract infection. Patient has been cleared by consultations. Please refer to consultation notes for further HPI. 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 Currently no reports of chest pain, shortness of breath, or palpitations. Patient is afebrile. No reports of nausea or vomiting and patient is tolerating diet. Patient will be discharged home today. Physical exam: Gen: This is a 74-year-old female who is awake, alert and oriented x 3, well- developed, elderly appearing, thin built HEENT: Head is atraumatic, normocephalic. Pupils equal, round. Sclerae is anicteric. NECK: Supple. No JVD. No lymphadenopathy. No thyromegaly. LUNGS: Diminished breath sounds bilaterally otherwise clear to auscultation. No wheezes or rhonchi. No intercostal retractions. HEART: S1, S2 are muffled ABDOMEN: Soft. Bowel sounds are present. No masses. No tenderness. EXTREMITIES: No pedal edema. No calf tenderness. NEUROLOGICAL: Patient is awake, alert and oriented x3. Cranial nerves 2 through 12 are grossly intact. Please refer to medication reconciliation sheet for a list of medications. The impression and plan of care has been dictated by Emelia Mukherjee, Nurse Practitioner as directed. Dr. René MD I have performed a history and examination and MDM of this patient, discussed the same with the dictator, and agree with the dictator's assessment and plan as written ,documented as a scribe. Based on total visit time, I have performed more than 50% of the visit. Patient Condition at Discharge: Fair Plan - Discharge Summary Discharge Rx Participant: No New Discharge Prescriptions: New Amiodarone [Cordarone] 200 mg PO BID #60 tab Acetaminophen Tab [Tylenol] 650 mg PO Q6HR PRN tab PRN Reason: Mild Pain Or Fever > 100.5 cefuroxime axetiL [Ceftin] 500 mg PO BID 7 Days #14 tab Continue Pantoprazole Sodium [Protonix] 40 mg PO DAILY Pyridoxine HCl (Vitamin B6) [Vitamin B-6] 100 mg PO DAILY Cyanocobalamin (Vitamin B-12) [Vitamin B-12] 1,000 mcg PO DAILY Metoprolol Tartrate [Lopressor] 50 mg PO BID amLODIPine [Norvasc] 10 mg PO DAILY Cholecalciferol (Vitamin D3) [Vitamin D3 (50 Mcg = 2000 Iu)] 50 mcg PO DAILY Ascorbic Acid [Vitamin C] 1,000 mg PO DAILY Discontinued Apixaban [Eliquis] 2.5 mg PO BID Discharge Medication List Cholecalciferol (Vitamin D3) [Vitamin D3 (50 Mcg = 2000 Iu)] 50 mcg PO DAILY 01/12/24 [History] Pantoprazole Sodium [Protonix] 40 mg PO DAILY 01/12/24 [History] Pyridoxine HCl (Vitamin B6) [Vitamin B-6] 100 mg PO DAILY 01/12/24 [History] amLODIPine [Norvasc] 10 mg PO DAILY 01/12/24 [History] Ascorbic Acid [Vitamin C] 1,000 mg PO DAILY 11/09/24 [History] Cyanocobalamin (Vitamin B-12) [Vitamin B-12] 1,000 mcg PO DAILY 11/09/24 [History] Metoprolol Tartrate [Lopressor] 50 mg PO BID 11/09/24 [History] Acetaminophen Tab [Tylenol] 650 mg PO Q6HR PRN tab 11/13/24 [Rx] Amiodarone [Cordarone] 200 mg PO BID #60 tab 11/13/24 [Rx] cefuroxime axetiL [Ceftin] 500 mg PO BID 7 Days #14 tab 11/13/24 [Rx] Follow up Appointment(s)/Referral(s): Kevin Walker MD [Primary Care Provider] - 11/17/24 11:00 am Shawnee Martinez MD [REFERRING] - 11/24/24 2:30 pm (Chain Maker - Will see BLAIR Samuel ) Patient Instructions/Handouts: A-fib (Atrial Fibrillation) (DC), Urinary Tract Infection in Women (DC), Thrombocytopenia (DC) Activity/Diet/Wound Care/Special Instructions: Activity limited until follow-up Follow-up with primary oncologist on discharge and keep your November 21 appointment Discuss with oncology on bone marrow biopsy, recommend urgently as it was scheduled for 11/13/2024 although patient was hospitalized Continue antibiotics twice daily for 7 days Continue to hold Eliquis Discharge Disposition: HOME SELF-CARE
--- NOTE | 2024-11-17 13:51 | CDI ---
Documentation Clarification Form Date: 11/17/2024 01:19:36 PM From: Aixa Dolan RN, CCDS Email: [email or web address] Admit Date: 11/09/2024 02:52:00 PM Patient Name: Miranda Pena Visit Number: [id number] Discharge Date: 11/13/2024 03:35:00 PM ATTENTION: The Clinical Documentation Specialists (CDI) and [facility] Coding Staff appreciate your assistance in clarifying documentation. Please respond to the clarification below the line at the bottom and electronically sign. The CDI & [facility] Coding staff will review the response and follow-up if needed. Please note: Queries are made part of the Legal Health Record. If you have any questions, please contact the author of this message via ITS. Doctor Nicole Bailey Anemia, thrombocytopenia, bicytopenia and pancytopenia are documented in the progress notes. Additional clarification is requested. History/Risk factors: Ovarian cancer, currently on Avastin, A fib and biliary stents. Presented with weakness and found to have a UTI. Clinical indicators: 11/10 Oncology: "Patient's counts have been low recently and there was a plan for a bone marrow biopsy in [place], scheduled for . Avastin is a VEGF inhibitor, not usually associated with significant drops in blood counts but, it can happen. Patient's counts have been progressively declining from her description. There is a bone marrow biopsy already scheduled for assessment." 11/13 Cardiology: "Paroxysmal atrial fibrillation with RVR, converted to sinus rhythm. Pancytopenia, history of ovarian cancer on maintenance therapy with Avastin." 11/09-11/13 WBC: 5.6-4.7-3.2 11/09-11/13 Hgb: 9.0-5.4-8.0 11/09-11/13 Platelet count: 26-21-18 Treatment: Monitor labs; see Oncology consult above; hold Eliquis for thrombocytopenia Please clarify the diagnosis/diagnoses: [ ] Pancytopenia due to Avastin [ ] Pancytopenia due to other, please specify [ ] Other condition, please specify ____ [ ] Unable to determine Unable to determine MTDD
== END 2024-11-13 15:35 | disposition home or self-care (01) | DRG 690 ==
LOC: EC 12:31 → 5NMEDONC 14:52 → 3SCARD 11-11 14:53
PROVIDERS: ADMIT Hospitalist; ATTEND Hospitalist
DX: N39.0 Urinary tract infection, site not specified (principal); D61.818 Other pancytopenia; D69.6 Thrombocytopenia, unspecified; K83.09 Other cholangitis; C56.9 Malignant neoplasm of unspecified ovary; D64.9 Anemia, unspecified; I10 Essential (primary) hypertension; N17.9 Acute kidney failure, unspecified; Z11.52 Encounter for screening for COVID-19; E83.42 Hypomagnesemia; R53.83 Other fatigue; I48.0 Paroxysmal atrial fibrillation; R53.1 Weakness; R79.89 Other specified abnormal findings of blood chemistry; Z85.43 Personal history of malignant neoplasm of ovary; K21.9 Gastro-esophageal reflux disease without esophagitis; K82.8 Other specified diseases of gallbladder; Z79.01 Long term (current) use of anticoagulants; Z79.899 Other long term (current) drug therapy
CPT/HCPCS: 36415; 71046; 74176; 80048; 80053; 81001; 83605; 83735; 84100; 85025; 87040; 87077; 87086; 87186; 87636; 93005; 96361; 96365; 96368; 99285